=== PATIENT | male | born 1935 | race Caucasian/White ===

== ENCOUNTER 2018-08-22 15:01 | Emergency (ER) | payer MEDICARE, OTHER ==
[2018-08-22] MEDS ORDERED: Sodium Chloride 0.9% 10 ML Syringe FLUSH PRN ×2 (15:12→16:12)
[2018-08-22] MEDS: Sodium Chloride 0.9% 1,000 ML IV SCH ×2 (15:40→18:00)
[2018-08-22] MEDS ORDERED: cefTRIAXone 1 GM Vial IVPUSH ONE (15:42)
[2018-08-22] MEDS ORDERED: methylPREDNISolone Sodium Succinate 125 MG/2 ML SDV IVPUSH ONE (15:42)
--- NOTE | 2018-08-22 15:42 | EDM.PDOC ---
ED HPI GENERAL MEDICAL PROBLEM - General Chief Complaint: Respiratory Problem Time Seen by Provider: 08/22/18 15:01 Source of Information: Reports: Patient, Family History Limitations: Reports: No Limitations - History of Present Illness INITIAL COMMENTS - FREE TEXT/NARRATIVE: Pt. presents to ER with complaints of cough, chest congestion, and low-grade fever. He has also noticed some chest tightness. No nausea or vomiting. Denies any substernal chest pain. Complains of productive cough, but states that he has not been looking at the mucus that he has been expectorating. Pt. has a history of rheumatoid arthritis. Denies any significant cardiac history. No history or CHF. Denies any history of COPD but states that he previously smoked, quitting about 20 years ago. Pt. states that he has been intermittently diaphoretic. Denies any nausea, vomiting, or diarrhea. No sore throat. Denies any ear pain or sinus congestion. He states that he has been lightheaded and weak at times. He denies any history of COPD, asthma, allergies, or other respiratory problems. Denies any orthopnea. He states that the dyspnea is worse when he is active or exercising. Onset Date: 08/22/18 Location: Reports: Chest, Generalized Associated Symptoms: Reports: Cough, cough w sputum, Diaphoresis, Fever/Chills - Related Data Allergies Allergy/AdvReac Type Severity Reaction Status Date / Time No Known Allergies Allergy Verified 08/22/18 15:12 Home Meds: Home Meds Aspirin [Halfprin] 81 mg PO DAILY 08/22/18 [History] Folic Acid 1 mg PO DAILY 08/22/18 [History] Lisinopril/Hydrochlorothiazide [Zestoretic 10-12.5 mg Tablet] 1 each PO DAILY [History] Simvastatin [Zocor] 20 mg PO DAILY 08/22/18 [History] Tamsulosin HCl [Flomax] 0.4 mg PO DAILY 08/22/18 [History] ED ROS GENERAL - Review of Systems Review Of Systems: See Below Constitutional: Reports: Fever, Chills, Diaphoresis HEENT: Reports: No Symptoms Respiratory: Reports: Shortness of Breath, Wheezing, Cough, Sputum Cardiovascular: Reports: Lightheadedness, Other Endocrine: Reports: No Symptoms GI/Abdominal: Reports: No Symptoms : Reports: No Symptoms Musculoskeletal: Reports: No Symptoms Skin: Reports: No Symptoms Neurological: Reports: No Symptoms Psychiatric: Reports: No Symptoms Hematologic/Lymphatic: Reports: No Symptoms Immunologic: Reports: No Symptoms ED EXAM, GENERAL - Physical Exam Exam: See Below Exam Limited By: No Limitations General Appearance: Alert, WD/WN, No Apparent Distress Eye Exam: Bilateral Eye: EOMI, PERRL Throat/Mouth: Normal Inspection, Normal Lips, Normal Teeth, Normal Gums, Normal Oropharynx, Normal Voice, No Airway Compromise Head: Atraumatic, Normocephalic Neck: Normal Inspection, Supple, Non-Tender, Full Range of Motion Respiratory/Chest: No Accessory Muscle Use, Chest Non-Tender, Decreased Breath Sounds, Wheezing. No: Stridor, Pleural Rub, Retractions Cardiovascular: Normal Peripheral Pulses, No Edema, Irregularly Irregular GI/Abdominal: Normal Bowel Sounds, Soft, Non-Tender, No Organomegaly, No Distention (Male) Exam: Deferred Rectal (Males) Exam: Deferred Back Exam: Normal Inspection, Full Range of Motion Extremities: Normal Inspection, Normal Range of Motion, Non-Tender, No Pedal Edema Neurological: Alert, Oriented, CN II-XII Intact, Normal Cognition EKG INTERPRETATION Rhythm: A-Fib Course - Orders/Labs/Meds Orders: Active Orders 24 hr Category Date Time Status Cardiac Monitoring [RC] CONTINUOUS Care 08/22/18 15:12 Active EKG Documentation Completion [RC] STAT Care 08/22/18 15:13 Active Chest 2V [CR] Stat Exams 08/22/18 15:12 Stop Req CBC WITH AUTO DIFF [HEME] Stat Lab 08/22/18 15:13 Ordered COMPREHENSIVE METABOLIC PN,CMP [CHEM] Stat Lab 08/22/18 15:13 Ordered CRP [C-REACTIVE PROTEIN] [CHEM] Stat Lab 08/22/18 15:13 Ordered CULTURE BLOOD [BC] Stat Lab 08/22/18 15:35 Ordered CULTURE BLOOD [BC] Stat Lab 08/22/18 15:35 Ordered D Dimer [D-DIMER QUANTITATIVE] [COAG] Stat Lab 08/22/18 15:14 Ordered INR,PT,PROTHROMBIN TIME [COAG] Stat Lab 08/22/18 15:13 Ordered LACTIC ACID [CHEM] Stat Lab 08/22/18 15:35 Ordered MAGNESIUM [CHEM] Stat Lab 08/22/18 15:13 Ordered MANUAL DIFFERENTIAL QA/NC [HEME] Stat Lab 08/22/18 15:30 Results PHOSPHORUS [CHEM] Stat Lab 08/22/18 15:13 Ordered PRO B-TYPE NATRIUR PEPT,BNPPRO [CHEM] Stat Lab 08/22/18 15:13 Ordered TROPONIN I [CHEM] Stat Lab 08/22/18 15:13 Ordered Sodium Chloride 0.9% @ 150 MLS/HR (1000ml) Med 08/22/18 15:45 Ordered Sodium Chloride 0.9% [Normal Saline] 1,000 ml IV ASDIRECTED Sodium Chloride 0.9% [Saline Flush] Med 08/22/18 15:12 Active 10 ml FLUSH ASDIRECTED PRN Blood Culture x2 Reflex Set [OM.PC] Stat Oth 08/22/18 15:35 Ordered Peripheral IV Insertion Adult [OM.PC] Routine Oth 08/22/18 15:13 Ordered Medication Orders Sodium Chloride (Normal Saline) 1,000 mls @ 150 mls/hr IV ASDIRECTED [facility] Last Admin: 08/22/18 15:40 Dose: 150 mls/hr Sodium Chloride (Saline Flush) 10 ml FLUSH ASDIRECTED PRN PRN Reason: Keep Vein Open Labs: Laboratory Tests 08/22/18 Range/Units 15:30 WBC 21.1 H* (4.0-10.0) x10^3/uL RBC 4.05 L (4.5-6.0) x10^6/uL Hgb 12.5 L (14.0-18.0) g/dL Hct 38.5 L (40.0-52.0) % MCV 95.1 H (78.0-93.0) fL MCH 30.9 (26.0-32.0) pg MCHC 32.5 (32.0-36.0) g/dL RDW Coeff of Robles 12.9 (10.0-15.0) % Plt Count 242 (130-400) x10^3/uL Add Manual Diff Yes Meds: Medications Generic Name Dose Route Start Last Admin Trade Name Freq PRN Reason Stop Dose Admin Sodium Chloride 1,000 mls @ 150 mls/hr 08/22/18 15:45 08/22/18 15:40 Normal Saline IV 150 mls/hr ASDIRECTED PAPO Administration Sodium Chloride 10 ml 08/22/18 15:12 Saline Flush FLUSH ASDIRECTED PRN Keep Vein Open Discontinued Medications Generic Name Dose Route Start Last Admin Trade Name Freq PRN Reason Stop Dose Admin Ceftriaxone Sodium 1 gm 08/22/18 15:42 Rocephin IVPUSH 08/22/18 15:43 STAT ONE Ceftriaxone Sodium 2 gm 08/22/18 15:44 Rocephin IVPUSH 08/22/18 15:45 STAT ONE Methylprednisolone Sodium Succinate 125 mg 08/22/18 15:42 Solu-Medrol IVPUSH 08/22/18 15:43 ONETIME ONE Departure - Departure Time of Disposition: 17:36 Disposition: DC/Tfer to [facility] 02 Clinical Impression: Sepsis, CAP (community acquired pneumonia) - Discharge Information Referrals: Carter Pinzon MD [Primary Care Provider] - Forms: ED Department Discharge - My Orders Last 24 Hours: My Active Orders 08/22/18 15:12 Cardiac Monitoring [RC] CONTINUOUS Chest 2V [CR] Stat Sodium Chloride 0.9% [Saline Flush] 10 ml FLUSH ASDIRECTED PRN 08/22/18 15:13 EKG Documentation Completion [RC] STAT CBC WITH AUTO DIFF [HEME] Stat COMPREHENSIVE METABOLIC PN,CMP [CHEM] Stat CRP [C-REACTIVE PROTEIN] [CHEM] Stat INR,PT,PROTHROMBIN TIME [COAG] Stat MAGNESIUM [CHEM] Stat PHOSPHORUS [CHEM] Stat PRO B-TYPE NATRIUR PEPT,BNPPRO [CHEM] Stat TROPONIN I [CHEM] Stat Peripheral IV Insertion Adult [OM.PC] Routine 08/22/18 15:14 D Dimer [D-DIMER QUANTITATIVE] [COAG] Stat 08/22/18 15:30 MANUAL DIFFERENTIAL QA/NC [HEME] Stat 08/22/18 15:35 CULTURE BLOOD [BC] Stat CULTURE BLOOD [BC] Stat LACTIC ACID [CHEM] Stat Blood Culture x2 Reflex Set [OM.PC] Stat 08/22/18 15:45 Sodium Chloride 0.9% @ 150 MLS/HR (1000ml) Sodium Chloride 0.9% [Normal Saline] 1,000 ml IV ASDIRECTED - Assessment/Plan Last 24 Hours: My Active Orders 08/22/18 15:12 Cardiac Monitoring [RC] CONTINUOUS Chest 2V [CR] Stat Sodium Chloride 0.9% [Saline Flush] 10 ml FLUSH ASDIRECTED PRN 08/22/18 15:13 EKG Documentation Completion [RC] STAT CBC WITH AUTO DIFF [HEME] Stat COMPREHENSIVE METABOLIC PN,CMP [CHEM] Stat CRP [C-REACTIVE PROTEIN] [CHEM] Stat INR,PT,PROTHROMBIN TIME [COAG] Stat MAGNESIUM [CHEM] Stat PHOSPHORUS [CHEM] Stat PRO B-TYPE NATRIUR PEPT,BNPPRO [CHEM] Stat TROPONIN I [CHEM] Stat Peripheral IV Insertion Adult [OM.PC] Routine 08/22/18 15:14 D Dimer [D-DIMER QUANTITATIVE] [COAG] Stat 08/22/18 15:30 MANUAL DIFFERENTIAL QA/NC [HEME] Stat 08/22/18 15:35 CULTURE BLOOD [BC] Stat CULTURE BLOOD [BC] Stat LACTIC ACID [CHEM] Stat Blood Culture x2 Reflex Set [OM.PC] Stat 08/22/18 15:45 Sodium Chloride 0.9% @ 150 MLS/HR (1000ml) Sodium Chloride 0.9% [Normal Saline] 1,000 ml IV ASDIRECTED Plan: Pt. will be transferred to [facility]. Dr. Fonseca is accepting. CT angiogram of chest was negative for PE. He has had rocephin 2 gm IV and azithromycin 500mg IV. Will continue IV normal saline at 150mg/hr. Will institute pressors if his blood pressure is not supported with IV fluids. Family is present and made aware of the plan to transfer.
[2018-08-22] MEDS ORDERED: cefTRIAXone 2 GM Vial IVPUSH ONE (15:44)
[2018-08-22 16:06] LABS: CHLORIDE,CL 102 mmol/L (98-107); SODIUM,NA 141 mmol/L (136-145)
[2018-08-22 16:08] LABS: ANION GAP 13.4 mmol/L (10-20)
[2018-08-22] MEDS ORDERED: Iopamidol 612 MG/ML 100 ML Bottle IVPUSH ONE (16:18)
[2018-08-22] MEDS ORDERED: Azithromycin 500 MG in Sodium Chloride 0.9% 250 ML IV ONE (16:22)
--- NOTE | 2018-08-22 17:25 | CT ---
[id number] CT/CTA Chest EXAM: CT ANGIOGRAM CHEST INDICATION: CHEST PAIN, POSITIVE D-DIMER. COMPARISON: None. DISCUSSION: 1.6 cm hypodense nodule within the left thyroid. The pulmonary arteries are normal in appearance with no emboli identified. 3 mm noncalcified pulmonary nodule within the right middle lobe (series 5 image 58). No other pulmonary nodules or masses are identified. Mild probably centrilobular emphysema. No airspace consolidation. No pneumothorax or pleural effusion. The heart is enlarged. Coronary artery disease. Scattered atherosclerotic calcifications of the aorta and its branches. No mediastinal, hilar or axillary lymphadenopathy. No acute osseous abnormalities. IMPRESSION: 1. No evidence of acute pulmonary embolism. Jurgen Woo DO 08/22/18 [id number] Thank you for allowing us to participate in the care of your patient.
== END 2018-08-22 18:40 | disposition short-term general hospital (02) ==
LOC: VM.ED 15:01
DX: A41.9 Sepsis, unspecified organism (principal); J18.9 Pneumonia, unspecified organism; Z79.82 Long term (current) use of aspirin; Z79.899 Other long term (current) drug therapy
CPT/HCPCS: 36415; 71275; 80053; 81001; 83605; 83735; 83880; 84100; 84484; 85025; 85379; 85610; 86140; 87040; 87086; 93005; 96361; 96365; 96375; 99285; J0456; J0696; J2930; J7030; J7050; Q9967; 93010; 99283-GF

== ENCOUNTER 2019-06-29 11:12 | Observation (INO) | payer MEDICARE, OTHER ==
--- NOTE | 2019-06-29 11:45 | EDM.PDOC ---
ED HPI GENERAL MEDICAL PROBLEM - General Chief Complaint: General Time Seen by Provider: 06/29/19 11:12 Source of Information: Reports: Patient History Limitations: Reports: No Limitations - History of Present Illness INITIAL COMMENTS - FREE TEXT/NARRATIVE: Pt. states that he developed onset of global weakness this AM. He states that he has been unable to ambulate. Pt. states that he went out and "did chores" this AM (feeding animals, etc.) and following this came into the house and was profoundly weak. He states that he was having problems with urinary retention yesterday and had a straight cath in the clinic. His UA at that time was negative. He notes painful urination and blood tinged urine this AM. Pt. was running a fever as noted by EMS. O2 sat in the 88% on RA range. He was started on O2 per NC at IV access was established. Pt. denies any chest pain or shortness of breath. He has not been coughing. Denies any nausea, vomiting, or diarrhea. Denies any skin rashes. Onset: Today Onset Date: 06/29/19 Location: Reports: Generalized Associated Symptoms: Reports: Fever/Chills, Malaise, Weakness. Denies: Chest Pain, Cough, cough w sputum, Diaphoresis, Headaches, Loss of Appetite, Nausea/ Vomiting, Rash, Seizure, Shortness of Breath, Syncope Penis Pain Score (Numeric/FACES): 1 - Related Data Allergies Allergy/AdvReac Type Severity Reaction Status Date / Time No Known Allergies Allergy Verified 06/29/19 11:34 Home Meds: Home Meds Folic Acid 1 mg PO DAILY 08/22/18 [History] Lisinopril/Hydrochlorothiazide [Zestoretic 10-12.5 mg Tablet] 1 each PO DAILY [History] Tamsulosin HCl [Flomax] 0.8 mg PO DAILY 08/22/18 [History] Finasteride [Proscar] 5 mg PO DAILY 06/29/19 [History] Metoprolol Tartrate [Lopressor] 12.5 mg PO Q12HR 06/29/19 [History] Rosuvastatin Calcium [Crestor] 40 mg PO DAILY 06/29/19 [History] Warfarin [Coumadin] 2.5 mg PO DAILY 06/29/19 [History] Past Medical History HEENT History: Reports: Cataract Cardiovascular History: Reports: Hypertension Musculoskeletal History: Reports: Other (See Below) Other Musculoskeletal History: DJD Hematologic History: Reports: Anemia, B12 Deficiency Social & Family History - Family History Family Medical History: Noncontributory - Caffeine Use Caffeine Use: Reports: None ED ROS GENERAL - Review of Systems Review Of Systems: See Below Constitutional: Reports: No Symptoms HEENT: Reports: No Symptoms Respiratory: Reports: No Symptoms Cardiovascular: Reports: No Symptoms Endocrine: Reports: No Symptoms GI/Abdominal: Reports: No Symptoms : Reports: Dysuria, Frequency, Hematuria, Urgency, Urinary Retention Musculoskeletal: Reports: No Symptoms Skin: Reports: No Symptoms Neurological: Reports: No Symptoms Psychiatric: Reports: No Symptoms Hematologic/Lymphatic: Reports: No Symptoms Immunologic: Reports: No Symptoms ED EXAM, GENERAL - Physical Exam Exam: See Below Exam Limited By: No Limitations General Appearance: Alert, WD/WN, No Apparent Distress Eye Exam: Bilateral Eye: EOMI, Normal Fundi, Normal Inspection, PERRL Throat/Mouth: Normal Inspection, Normal Lips, Normal Teeth, Normal Gums, Normal Oropharynx, Normal Voice, No Airway Compromise Head: Atraumatic, Normocephalic Neck: Normal Inspection, Supple, Non-Tender, Full Range of Motion Respiratory/Chest: No Respiratory Distress, Lungs Clear, Normal Breath Sounds, No Accessory Muscle Use, Chest Non-Tender Cardiovascular: Normal Peripheral Pulses, Regular Rate, Rhythm, No Edema, No Gallop, No JVD, No Murmur Peripheral Pulses: 4+: Radial (L) GI/Abdominal: Normal Bowel Sounds, Soft, Non-Tender, No Mass (Male) Exam: Deferred Rectal (Males) Exam: Deferred Back Exam: Normal Inspection, Full Range of Motion Extremities: Normal Inspection, Normal Range of Motion, Non-Tender, No Pedal Edema, Normal Capillary Refill Neurological: Alert, Oriented, CN II-XII Intact, Normal Cognition, Normal Gait, Normal Reflexes, No Motor/Sensory Deficits Psychiatric: Normal Affect, Normal Mood Skin Exam: Warm, Dry, Intact, Normal Color, No Rash Course - Vital Signs Last Recorded V/S: Last Vital Signs Temp 98.5 C H 06/29/19 14:31 Pulse 92 06/29/19 13:17 Resp 15 06/29/19 14:31 BP 108/62 06/29/19 14:31 Pulse Ox 95 06/29/19 14:31 - Orders/Labs/Meds Orders: Active Orders 24 hr Category Date Time Status EKG Documentation Completion [RC] STAT Care 06/29/19 11:21 Active CULTURE BLOOD [BC] Stat Lab 06/29/19 11:33 Received CULTURE BLOOD [BC] Stat Lab 06/29/19 11:38 Received Blood Culture x2 Reflex Set [OM.PC] Stat Oth 06/29/19 11:24 Ordered Medication Orders Finasteride (Proscar) 5 mg PO DAILY [facility] Folic Acid (Folic Acid) 1 mg PO DAILY [facility] Metoprolol Tartrate (Lopressor) 12.5 mg PO Q12HR [facility] Non-Formulary Medication (Lisinopril/Hydrochlorothiazide) 1 each PO DAILY [facility] Tamsulosin HCl (Flomax) 0.8 mg PO DAILY [facility] Warfarin Sodium (Coumadin) 2.5 mg PO DAILY [facility] Labs: Laboratory Tests 06/29/19 06/29/19 06/29/19 Range/Units 11:33 11:33 11:33 WBC 18.4 H (4.0-10.0) x10^3/uL RBC 3.69 L (4.5-6.0) x10^6/uL Hgb 11.2 L (14.0-18.0) g/dL Hct 35.1 L (40.0-52.0) % MCV 95.1 H (78.0-93.0) fL MCH 30.4 (26.0-32.0) pg MCHC 31.9 L (32.0-36.0) g/dL RDW Coeff of Robles 12.7 (10.0-15.0) % Plt Count 293 (130-400) x10^3/uL Neut % (Auto) 90.1 H (50.0-80.0) % Lymph % (Auto) 1.6 L (25.0-50.0) % Burke % (Auto) 8.1 (2.0-11.0) % Eos % (Auto) 0.1 (0.0-4.0) % Baso % (Auto) 0.1 L (0.2-1.2) % PT 29.4 H D (10.0-12.8) SEC INR 2.6 (2.0-3.5) Sodium 144 (136-145) mmol/L Potassium 3.7 (3.5-5.1) mmol/L Chloride 106 (98-107) mmol/L Carbon Dioxide 31 (21-32) mmol/L Anion Gap 10.7 (10-20) mmol/L BUN 15 (7-18) mg/dL Creatinine 1.0 (0.70-1.30) mg/dL Est Cr Clr Drug Dosing TNP Estimated GFR (MDRD) > 60 Glucose 109 H (74-106) mg/dL Lactic Acid (0.4-2.0) mmol/L Calcium 8.8 (8.5-10.1) mg/dL Corrected Calcium 9.76 (8.5-10.1) mg/dL Phosphorus 1.4 L (2.6-4.7) mg/dL Magnesium 1.7 L (1.8-2.4) mg/dL Total Bilirubin 0.6 (0.2-1.0) mg/dL AST 17 (15-37) U/L ALT 20 (16-63) U/L Alkaline Phosphatase 84 (46-116) U/L Troponin I < 0.017 (<=0.056) ng/mL C-Reactive Protein 1.2 H (<=0.9) mg/dL Total Protein 6.2 L (6.4-8.2) g/dL Albumin 2.8 L (3.4-5.0) g/dL Globulin 3.4 Albumin/Globulin Ratio 0.82 TSH, Ultra Sensitive 1.923 (0.358-3.74) uIU/mL Urine Color (YELLOW) Urine Appearance (CLEAR) Urine pH (5.0-8.0) Ur Specific [place] Urine Protein (NEGATIVE) mg/dL Urine Glucose (UA) (NEGATIVE) mg/dL Urine Ketones (NEGATIVE) mg/dL Urine Occult Blood (NEGATIVE) Urine Nitrite (NEGATIVE) Urine Bilirubin (NEGATIVE) Urine Urobilinogen (0.2) EU/dL Ur Leukocyte Esterase (NEGATIVE) Urine RBC (NOT SEEN) /HPF Urine WBC (NOT SEEN) /HPF Ur Squamous Epith Cells (NEGATIVE) /HPF Urine Bacteria (NEGATIVE) /HPF Urine Mucus (NEGATIVE) /LPF 06/29/19 06/29/19 Range/Units 11:33 11:55 WBC (4.0-10.0) x10^3/uL RBC (4.5-6.0) x10^6/uL Hgb (14.0-18.0) g/dL Hct (40.0-52.0) % MCV (78.0-93.0) fL MCH (26.0-32.0) pg MCHC (32.0-36.0) g/dL RDW Coeff of Robles (10.0-15.0) % Plt Count (130-400) x10^3/uL Neut % (Auto) (50.0-80.0) % Lymph % (Auto) (25.0-50.0) % Burke % (Auto) (2.0-11.0) % Eos % (Auto) (0.0-4.0) % Baso % (Auto) (0.2-1.2) % PT (10.0-12.8) SEC INR (2.0-3.5) Sodium (136-145) mmol/L Potassium (3.5-5.1) mmol/L Chloride (98-107) mmol/L Carbon Dioxide (21-32) mmol/L Anion Gap (10-20) mmol/L BUN (7-18) mg/dL Creatinine (0.70-1.30) mg/dL Est Cr Clr Drug Dosing Estimated GFR (MDRD) Glucose (74-106) mg/dL Lactic Acid 1.7 (0.4-2.0) mmol/L Calcium (8.5-10.1) mg/dL Corrected Calcium (8.5-10.1) mg/dL Phosphorus (2.6-4.7) mg/dL Magnesium (1.8-2.4) mg/dL Total Bilirubin (0.2-1.0) mg/dL AST (15-37) U/L ALT (16-63) U/L Alkaline Phosphatase (46-116) U/L Troponin I (<=0.056) ng/mL C-Reactive Protein (<=0.9) mg/dL Total Protein (6.4-8.2) g/dL Albumin (3.4-5.0) g/dL Globulin Albumin/Globulin Ratio TSH, Ultra Sensitive (0.358-3.74) uIU/mL Urine Color Yellow (YELLOW) Urine Appearance Slightly cloudy H (CLEAR) Urine pH 6.0 (5.0-8.0) Ur Specific [place] 1.020 Urine Protein Negative (NEGATIVE) mg/dL Urine Glucose (UA) Negative (NEGATIVE) mg/dL Urine Ketones Negative (NEGATIVE) mg/dL Urine Occult Blood Small H (NEGATIVE) Urine Nitrite Negative (NEGATIVE) Urine Bilirubin Negative (NEGATIVE) Urine Urobilinogen 0.2 (0.2) EU/dL Ur Leukocyte Esterase Negative (NEGATIVE) Urine RBC 5-10 H (NOT SEEN) /HPF Urine WBC 0-5 (NOT SEEN) /HPF Ur Squamous Epith Cells Rare (NEGATIVE) /HPF Urine Bacteria Not seen (NEGATIVE) /HPF Urine Mucus Few H (NEGATIVE) /LPF Meds: Medications Generic Name Dose Route Start Last Admin Trade Name Freq PRN Reason Stop Dose Admin Finasteride 5 mg 06/30/19 08:00 Proscar PO DAILY [facility] Folic Acid 1 mg 06/30/19 08:00 Folic Acid PO DAILY [facility] Metoprolol Tartrate 12.5 mg 06/29/19 20:00 Lopressor PO Q12HR [facility] Non-Formulary Medication 1 each 06/30/19 08:00 Lisinopril/Hydrochlorothiazide PO DAILY [facility] Tamsulosin HCl 0.8 mg 06/30/19 08:00 Flomax PO DAILY [facility] Warfarin Sodium 2.5 mg 06/30/19 08:00 Coumadin PO DAILY [facility] Discontinued Medications Generic Name Dose Route Start Last Admin Trade Name Freq PRN Reason Stop Dose Admin Ceftriaxone Sodium 2 gm 06/29/19 12:20 06/29/19 13:03 Rocephin IVPUSH 06/29/19 12:21 2 gm STAT ONE Administration Iopamidol 100 ml 06/29/19 12:34 [id number] (61%) IVPUSH 06/29/19 12:35 ONETIME ONE - Radiology Interpretation Free Text/Narrative:: CT abd and pelvis showed bladder wall thickening, enlargement of prostate. No obvious abscess or ruptured viscus. Departure - Departure Time of Disposition: 14:30 Disposition: Refer to Observation Clinical Impression: Prostatitis, UTI (urinary tract infection) - Discharge Information Sepsis Event Note - Evaluation Sepsis Screening Result: No Definite Risk - Focused Exam Vital Signs: Vital Signs Temp Pulse Resp BP Pulse Ox Pulse Ox 06/29/19 13:17 37.6 C 92 16 104/65 95 06/29/19 11:12 38.1 C 104 H 20 111/60 94 L 95 Date Exam was Performed: 06/29/19 Time Exam was Performed: 14:53 - Problem List Review Problem List Initiated/Reviewed/Updated: Yes - My Orders Last 24 Hours: My Active Orders 06/29/19 11:21 EKG Documentation Completion [RC] STAT 06/29/19 11:24 Blood Culture x2 Reflex Set [OM.PC] Stat 06/29/19 11:33 CULTURE BLOOD [BC] Stat 06/29/19 11:38 CULTURE BLOOD [BC] Stat - Assessment/Plan Admission H&P: Please use this note as an admission H&P Last 24 Hours: My Active Orders 06/29/19 11:21 EKG Documentation Completion [RC] STAT 06/29/19 11:24 Blood Culture x2 Reflex Set [OM.PC] Stat 06/29/19 11:33 CULTURE BLOOD [BC] Stat 06/29/19 11:38 CULTURE BLOOD [BC] Stat Plan: Pt. will be admitted observation. Continue IV LR at 125ml/hr after first liter of fluids. Rocephin 2gm IV daily. Continue with flomax and finasteride. Tylenol as needed for fever/discomfort.
--- NOTE | 2019-06-29 11:51 | CR ---
[id number] RAD/RAD Chest PA or AP 1V EXAM: RAD Chest PA or AP 1V INDICATION: FEVER, WEAKNESS. COMPARISON: CT from August 2018. DISCUSSION: Cardiomegaly and central vascular congestion. Bilateral symmetric lung hyperinflation. Correlation with CT from August 22, 2018 demonstrates changes of COPD. No evidence of pneumonia. No effusion or pneumothorax. IMPRESSION: Negative for pneumonia or other acute findings. Overall, no significant change from prior examination in August 2018. Keyur Varner MD 06/29/19 1149 Thank you for allowing us to participate in the care of your patient.
[2019-06-29 12:14] LABS: CHLORIDE,CL 106 mmol/L (98-107); SODIUM,NA 144 mmol/L (136-145)
[2019-06-29 12:19] LABS: ANION GAP 10.7 mmol/L (10-20)
[2019-06-29] MEDS ORDERED: cefTRIAXone 2 GM Vial IVPUSH ONE (12:20)
[2019-06-29] MEDS ORDERED: Iopamidol 612 MG/ML 100 ML Bottle IVPUSH ONE (12:34)
--- NOTE | 2019-06-29 13:38 | CT ---
[id number] CT/CT Abdomen Pelvis W IV EXAM: CT Abdomen Pelvis W IV CLINICAL DATA: ELEVATED WHITE BLOOD CELL COUNT URINARY RETENTION PROSTATE INFECTION COMPARISON: NO PREVIOUS SIMILAR EXAM IS AVAILABLE. FINDINGS: There is bladder wall thickening The prostate is enlarged. The urinary bladder is moderately distended. The appendix appears normal. The pelvis shows no mass or adenopathy. There is no abscess There are diffuse atheromatous calcifications. The liver and spleen, kidneys, adrenals, aorta, and pancreas show no acute abnormalities. The gallbladder is not distended. The abdominal aorta and iliac vessels are ectatic. There is no free fluid or free air IMPRESSION: BLADDER WALL THICKENING EVIDENCE OF CHRONIC BLADDER OUTLET OBSTRUCTION MODERATE DISTENTION OF URINARY BLADDER PROSTATIC ENLARGEMENT NO ABSCESS NO HYDRONEPHROSIS Abiodun Jon MD 06/29/19 1451 Thank you for allowing us to participate in the care of your patient.
[2019-06-29] MEDS ORDERED: Acetaminophen 500 MG Tab PO PRN (15:51)
[2019-06-29] MEDS: Sodium Chloride 0.9% 1,000 ML IV SCH (18:47)
[2019-06-29] MEDS: Metoprolol Tartrate 25 MG Tab PO SCH (20:12)
[2019-06-30] MEDS: Sodium Chloride 0.9% 1,000 ML IV SCH ×2 (02:34→10:52)
[2019-06-30] MEDS ORDERED: Tamsulosin 0.4 MG Cap.ER PO SCH (08:00)
[2019-06-30] MEDS ORDERED: Folic Acid 1 MG Tab PO SCH (08:00)
[2019-06-30] MEDS ORDERED: Lisinopril 10 MG Tab PO SCH (08:00)
[2019-06-30] MEDS ORDERED: Finasteride 5 MG Tab PO SCH (08:00)
[2019-06-30] MEDS ORDERED: HYDROCHLOROTHIAZIDE PO SCH (08:00)
[2019-06-30] MEDS ORDERED: LISINOPRIL PO SCH (08:00)
[2019-06-30] MEDS ORDERED: atorvaSTATin 40 MG Tab PO SCH (08:00)
[2019-06-30] MEDS ORDERED: Hydrochlorothiazide 12.5 MG Cap PO SCH (08:00)
[2019-06-30] MEDS ORDERED: Warfarin 2.5 MG Tab PO SCH (08:00)
[2019-06-30 08:12] LABS: CHLORIDE,CL 108 mmol/L (98-107); SODIUM,NA 144 mmol/L (136-145)
[2019-06-30 08:13] LABS: ANION GAP 10.8 mmol/L (10-20)
[2019-06-30] MEDS: Metoprolol Tartrate 25 MG Tab PO SCH (09:29)
[2019-06-30] MEDS ORDERED: cefTRIAXone 1 GM Vial IVPUSH SCH (12:00)
--- NOTE | 2019-06-30 14:38 | PCM.PN ---
- General Info Date of Service: 06/30/19 Admission Dx/Problem (Free Text): Pt. did well overnight. He has been afebrile. His lactic acid has decreased. His white count this AM was still 18.4. Pt. is still experiencing urinary retention. He has been unable to void and has required periodic straight catheterizations. Nursing staff states that his urine his still quite concentrated. He has been receiving IV NS at 125ml/hr. He received IV rocephin 2gm IV on admit and will get 1 gm IV daily. He is on flomax and finasteride. He has only been up walking to the bathroom. He has not gone for a walk in the hallway so have been unable to assess his strength overall. He is requesting to be discharged with a leg bag to wear while the prostatitis improves. He has been eating and drinking adequately. Denies any nausea, vomiting, or diarrhea. Functional Status: Reports: Pain Controlled - Review of Systems General: Reports: No Symptoms HEENT: Reports: No Symptoms Pulmonary: Reports: No Symptoms Cardiovascular: Reports: No Symptoms Gastrointestinal: Reports: No Symptoms Genitourinary: Reports: Dysuria, Burning, Retention Musculoskeletal: Reports: No Symptoms Skin: Reports: No Symptoms Neurological: Reports: No Symptoms Psychiatric: Reports: No Symptoms - Patient Data Vitals - Most Recent: Last Vital Signs Temp 36.9 C 06/30/19 10:57 Pulse 70 06/30/19 09:29 Resp 16 06/30/19 10:57 BP 112/68 06/30/19 10:57 Pulse Ox 95 06/30/19 10:57 Weight - Most Recent: 74.389 kg I&O - Last 24 Hours: Intake & Output 06/29/19 06/30/19 06/30/19 22:59 06:59 14:59 Intake Total 220 360 Output Total 10 150 Balance 210 -150 360 Lab Results Last 24 Hours: Laboratory Results - last 24 hr 06/30/19 06/30/19 06/30/19 Range/Units 02:02 07:15 07:15 WBC 18.4 H (4.0-10.0) x10^3/uL RBC 3.18 L (4.5-6.0) x10^6/uL Hgb 9.7 L D (14.0-18.0) g/dL Hct 31.1 L (40.0-52.0) % MCV 97.8 H (78.0-93.0) fL MCH 30.5 (26.0-32.0) pg MCHC 31.2 L (32.0-36.0) g/dL RDW Coeff of [place] 13.2 (10.0-15.0) % Plt Count 274 (130-400) x10^3/uL Add Manual Diff Yes Neutrophils % (Manual) 82 H (50-80) % Band Neutrophils % 2 (0-6) % Lymphocytes % (Manual) 6 L (25-50) % Monocytes % (Manual) 10 (2-11) % Hypochromasia 1+ slight H Microcytosis 1+ slight H Sodium 144 (136-145) mmol/L Potassium 3.8 (3.5-5.1) mmol/L Chloride 108 H (98-107) mmol/L Carbon Dioxide 29 (21-32) mmol/L Anion Gap 10.8 (10-20) mmol/L BUN 16 (7-18) mg/dL Creatinine 0.9 (0.70-1.30) mg/dL Est Cr Clr Drug Dosing 63.09 mL/min Estimated GFR (MDRD) > 60 Glucose 85 (74-106) mg/dL Lactic Acid 0.8 (0.4-2.0) mmol/L Calcium 8.1 L (8.5-10.1) mg/dL Franky Results Last 24 Hours: Microbiology 06/29/19 11:38 Aerobic Blood Culture - Preliminary Blood - Venous - Lab Draw NO GROWTH AFTER 1 DAY Anaerobic Blood Culture - Preliminary NO GROWTH AFTER 1 DAY 06/29/19 11:33 Aerobic Blood Culture - Preliminary Blood - Venous NO GROWTH AFTER 1 DAY Anaerobic Blood Culture - Preliminary NO GROWTH AFTER 1 DAY 06/29/19 12:00 Influenza Type A Antigen Screen - Final Nasal, Unspecified NEGATIVE INFLUENZA A VIRUS AG REFERENCE RANGE: NEGATIVE Influenza Type B Antigen Screen - Final NEGATIVE INFLUENZA B VIRUS AG REFERENCE RANGE: NEGATIVE Med Orders - Current: Current Medications Acetaminophen (Tylenol Extra Strength) 1,000 mg PO Q6H PRN PRN Reason: Fever Greater Than 101 Atorvastatin Calcium (Lipitor) 80 mg PO DAILY [facility] Last Admin: 06/30/19 09:28 Dose: 80 mg Ceftriaxone Sodium (Rocephin) 1 gm IVPUSH DAILY [facility] Last Admin: 06/30/19 13:51 Dose: 1 gm Finasteride (Proscar) 5 mg PO DAILY [facility] Last Admin: 06/30/19 09:29 Dose: 5 mg Folic Acid (Folic Acid) 1 mg PO DAILY [facility] Last Admin: 06/30/19 09:29 Dose: 1 mg Hydrochlorothiazide (Hydrochlorothiazide) 12.5 mg PO DAILY [facility] Last Admin: 06/30/19 09:30 Dose: 12.5 mg Sodium Chloride (Normal Saline) 1,000 mls @ 150 mls/hr IV ASDIRECTED [facility] Last Infusion: 06/30/19 12:12 Dose: 150 mls/hr Lisinopril (Prinivil) 10 mg PO DAILY [facility] Last Admin: 06/30/19 09:30 Dose: 10 mg Metoprolol Tartrate (Lopressor) 12.5 mg PO Q12HR [facility] Last Admin: 06/30/19 09:29 Dose: 12.5 mg Tamsulosin HCl (Flomax) 0.8 mg PO DAILY [facility] Last Admin: 06/30/19 09:28 Dose: 0.8 mg Warfarin Sodium (Coumadin) 2.5 mg PO SuTuThSa@0800 [facility] Last Admin: 06/30/19 09:28 Dose: 2.5 mg Warfarin Sodium (Coumadin) 1.25 mg PO MoWeFr@0800 [facility] Discontinued Medications Ceftriaxone Sodium (Rocephin) 2 gm IVPUSH STAT ONE Stop: 06/29/19 12:21 Last Admin: 06/29/19 13:03 Dose: 2 gm Iopamidol (Isovue-300 (61%)) 100 ml IVPUSH ONETIME ONE Stop: 06/29/19 12:35 Last Admin: 06/29/19 13:06 Dose: 100 ml - Exam Quality Assessment: Supplemental Oxygen General: Alert, Oriented Neck: Supple Lungs: Clear to Auscultation, Normal Respiratory Effort Cardiovascular: Regular Rate, Irregular Rhythm GI/Abdominal Exam: Normal Bowel Sounds, Soft, Non-Tender, No Distention, No Mass , Pelvis Stable (Male) Exam: Deferred Back Exam: Normal Inspection, Full Range of Motion Extremities: Normal Inspection, Normal Range of Motion, Non-Tender, No Pedal Edema, Normal Capillary Refill Skin: Warm, Dry, Intact Wound/Incisions: Healing Well Neurological: No New Focal Deficit Psy/Mental Status: Alert, Normal Affect, Normal Mood Sepsis Event Note - Evaluation Sepsis Screening Result: Sepsis Risk - Focused Exam Vital Signs: Vital Signs Temp Temp Pulse Pulse Resp BP BP 06/30/19 10:57 36.9 C 16 112/68 06/30/19 09:30 104/55 L 06/30/19 09:29 70 104/55 L 06/30/19 05:24 36.6 C 69 16 104/55 L Pulse Ox 06/30/19 10:57 95 06/30/19 09:30 06/30/19 09:29 06/30/19 05:24 97 Date Exam was Performed: 06/30/19 Time Exam was Performed: 14:33 - Problem List Review Problem List Initiated/Reviewed/Updated: Yes - My Orders Last 24 Hours: My Active Orders 06/29/19 13:46 Patient Status [ADT] Routine 06/29/19 14:43 Intake and Output [RC] 06,18 Up With Assistance [RC] , VTE/DVT Education [RC] .PRN Vital Signs [RC] 02,06,10,14,18,22 06/29/19 15:50 Dietary Supplements [RC] 11,17 06/29/19 15:51 Acetaminophen [Tylenol Extra Strength] 1,000 mg PO Q6H PRN 06/29/19 15:52 Code Status [Resuscitation Status] Routine 06/29/19 16:00 Sodium Chloride 0.9% [Normal Saline] 1,000 ml IV ASDIRECTED 06/29/19 20:00 Metoprolol Tartrate [Lopressor] 12.5 mg PO Q12HR 06/29/19 Dinner Regular Diet [DIET] 06/30/19 01:30 CULTURE URINE [RM] Stat 06/30/19 08:00 Finasteride [Proscar] 5 mg PO DAILY Folic Acid 1 mg PO DAILY Tamsulosin [Flomax] 0.8 mg PO DAILY Warfarin [Coumadin] 2.5 mg PO SuTuThSa@0800 atorvaSTATin [Lipitor] 80 mg PO DAILY hydroCHLOROthiazide 12.5 mg PO DAILY lisinopriL [Prinivil] 10 mg PO DAILY 06/30/19 12:00 cefTRIAXone [Rocephin] 1 gm IVPUSH DAILY 07/02/19 08:00 Warfarin [Coumadin] 1.25 mg PO MoWeFr@0800 - Plan Plan:: Will evaluate patient's ability to ambulate this afternoon. I would like to keep the patient another day. Will continue IV rocephin. Blood and urine cultures obtained. IV NS at 150ml/hr. Will repeat labs in the AM. Continue with intermittent caths for now. All questions were answered.
[2019-06-30] MEDS ORDERED: Take Home: Sulfamethoxazole/Trimethoprim 800-160 MG Tab, 2 Tab Pack PO ONE (15:18)
--- NOTE | 2019-06-30 15:41 | PCM.DCSUM1 ---
Discharge Summary - Hospital Course Free Text/Narrative:: Pt. states that he is feeling much better this afternoon. He was up and out of bed and was able to ambulate around the department. He has been tolerating food and drink. No nausea, vomiting, or diarrhea. He has been afebrile since yesterday afternoon. Please refer to the patient's progress note from earlier today as well. I advised the patient that I would like to keep him admitted on IV antibiotics until tomorrow but he is insistent that he be discharged. Diagnosis: Stroke: No Modified [place] Scale: No Symptoms at All Modified [place] Scale Score: 0 - Discharge Data Discharge Date: 06/30/19 Discharge Disposition: Home, Self-Care 01 Condition: Good - Referral to Home Health Primary Care Physician: Carter Pinzon MD - Discharge Diagnosis/Problem(s) (1) Prostatitis SNOMED Code(s): 6256629 ICD Code: N41.9 - INFLAMMATORY DISEASE OF PROSTATE, UNSPECIFIED Status: Acute Current Visit: Yes Qualifiers: Prostatitis type: acute Qualified Code(s): N41.0 - Acute prostatitis - Discharge Plan Home Medications: Home Meds Folic Acid 1 mg PO DAILY 08/22/18 [History] Lisinopril/Hydrochlorothiazide [Zestoretic 10-12.5 mg Tablet] 1 each PO DAILY [History] Tamsulosin HCl [Flomax] 0.8 mg PO DAILY 08/22/18 [History] Finasteride [Proscar] 5 mg PO DAILY 06/29/19 [History] Metoprolol Tartrate [Lopressor] 12.5 mg PO Q12HR 06/29/19 [History] Rosuvastatin Calcium [Crestor] 40 mg PO DAILY 06/29/19 [History] Warfarin [Coumadin] 2.5 mg PO DAILY 06/29/19 [History] Forms: ED Department Discharge Referrals: Carter Pinzon MD [Primary Care Provider] - - Discharge Summary/Plan Comment DC Time >30 min.: Yes Discharge Summary/Plan Comment: Discussed findings with Dr. Qureshi, urologist at [facility]. He feels that the patient can be discharged. Will start the patient on Bactrim DS 1 twice daily for 14 days. Rowe Catheter removed Tuesday in clinic. Advised him to have his INR checked as well, given the antibiotics he has been on. He received a dose of Rocephin today and can start the bactrim tomorrow. Encouraged intake of fluids. Return to ER if profound weakness/lightheadedness, chest pain or shortness of breath. - General Info Functional Status: Reports: Pain Controlled - Review of Systems General: Reports: No Symptoms HEENT: Reports: No Symptoms Pulmonary: Reports: No Symptoms Cardiovascular: Reports: No Symptoms Gastrointestinal: Reports: No Symptoms Genitourinary: Reports: No Symptoms Musculoskeletal: Reports: No Symptoms Skin: Reports: No Symptoms Neurological: Reports: No Symptoms Psychiatric: Reports: No Symptoms - Patient Data Vitals - Most Recent: Last Vital Signs Temp 37.1 C 06/30/19 14:00 Pulse 84 06/30/19 14:00 Resp 16 06/30/19 10:57 BP 107/67 06/30/19 14:00 Pulse Ox 96 06/30/19 14:00 Weight - Most Recent: 74.389 kg I&O - Last 24 hours: Intake & Output 06/30/19 06/30/19 06/30/19 06:59 14:59 22:59 Intake Total 360 Output Total 150 Balance -150 360 Lab Results - Last 24 hrs: Laboratory Results - last 24 hr 06/30/19 06/30/19 06/30/19 Range/Units 02:02 07:15 07:15 WBC 18.4 H (4.0-10.0) x10^3/uL RBC 3.18 L (4.5-6.0) x10^6/uL Hgb 9.7 L D (14.0-18.0) g/dL Hct 31.1 L (40.0-52.0) % MCV 97.8 H (78.0-93.0) fL MCH 30.5 (26.0-32.0) pg MCHC 31.2 L (32.0-36.0) g/dL RDW Coeff of [place] 13.2 (10.0-15.0) % Plt Count 274 (130-400) x10^3/uL Add Manual Diff Yes Neutrophils % (Manual) 82 H (50-80) % Band Neutrophils % 2 (0-6) % Lymphocytes % (Manual) 6 L (25-50) % Monocytes % (Manual) 10 (2-11) % Hypochromasia 1+ slight H Microcytosis 1+ slight H Sodium 144 (136-145) mmol/L Potassium 3.8 (3.5-5.1) mmol/L Chloride 108 H (98-107) mmol/L Carbon Dioxide 29 (21-32) mmol/L Anion Gap 10.8 (10-20) mmol/L BUN 16 (7-18) mg/dL Creatinine 0.9 (0.70-1.30) mg/dL Est Cr Clr Drug Dosing 63.09 mL/min Estimated GFR (MDRD) > 60 Glucose 85 (74-106) mg/dL Lactic Acid 0.8 (0.4-2.0) mmol/L Calcium 8.1 L (8.5-10.1) mg/dL THOMAS Results - Last 24 hrs: Microbiology 06/29/19 11:38 Aerobic Blood Culture - Preliminary Blood - Venous - Lab Draw NO GROWTH AFTER 1 DAY Anaerobic Blood Culture - Preliminary NO GROWTH AFTER 1 DAY 06/29/19 11:33 Aerobic Blood Culture - Preliminary Blood - Venous NO GROWTH AFTER 1 DAY Anaerobic Blood Culture - Preliminary NO GROWTH AFTER 1 DAY 06/29/19 12:00 Influenza Type A Antigen Screen - Final Nasal, Unspecified NEGATIVE INFLUENZA A VIRUS AG REFERENCE RANGE: NEGATIVE Influenza Type B Antigen Screen - Final NEGATIVE INFLUENZA B VIRUS AG REFERENCE RANGE: NEGATIVE Med Orders - Current: Current Medications Acetaminophen (Tylenol Extra Strength) 1,000 mg PO Q6H PRN PRN Reason: Fever Greater Than 101 Atorvastatin Calcium (Lipitor) 80 mg PO DAILY [facility] Last Admin: 06/30/19 09:28 Dose: 80 mg Ceftriaxone Sodium (Rocephin) 1 gm IVPUSH DAILY [facility] Last Admin: 06/30/19 13:51 Dose: 1 gm Finasteride (Proscar) 5 mg PO DAILY [facility] Last Admin: 06/30/19 09:29 Dose: 5 mg Folic Acid (Folic Acid) 1 mg PO DAILY [facility] Last Admin: 06/30/19 09:29 Dose: 1 mg Hydrochlorothiazide (Hydrochlorothiazide) 12.5 mg PO DAILY [facility] Last Admin: 06/30/19 09:30 Dose: 12.5 mg Sodium Chloride (Normal Saline) 1,000 mls @ 150 mls/hr IV ASDIRECTED [facility] Last Infusion: 06/30/19 12:12 Dose: 150 mls/hr Lisinopril (Prinivil) 10 mg PO DAILY [facility] Last Admin: 06/30/19 09:30 Dose: 10 mg Metoprolol Tartrate (Lopressor) 12.5 mg PO Q12HR [facility] Last Admin: 06/30/19 09:29 Dose: 12.5 mg Tamsulosin HCl (Flomax) 0.8 mg PO DAILY [facility] Last Admin: 06/30/19 09:28 Dose: 0.8 mg Warfarin Sodium (Coumadin) 2.5 mg PO SuTuThSa@0800 [facility] Last Admin: 06/30/19 09:28 Dose: 2.5 mg Warfarin Sodium (Coumadin) 1.25 mg PO MoWeFr@0800 [facility] Discontinued Medications Ceftriaxone Sodium (Rocephin) 2 gm IVPUSH STAT ONE Stop: 06/29/19 12:21 Last Admin: 06/29/19 13:03 Dose: 2 gm Iopamidol (Isovue-300 (61%)) 100 ml IVPUSH ONETIME ONE Stop: 06/29/19 12:35 Last Admin: 06/29/19 13:06 Dose: 100 ml Trimethoprim/Sulfamethoxazole (Take Home: Sulfameth/Trimet 800-160mg, 2 Pack) 1 packet PO ONETIME ONE Stop: 06/30/19 15:19 - Exam General: Reports: Alert, Oriented Neck: Reports: Supple Lungs: Reports: Clear to Auscultation, Normal Respiratory Effort Cardiovascular: Reports: Regular Rate, Irregular Rhythm GI/Abdominal Exam: Normal Bowel Sounds, Soft, Non-Tender, No Organomegaly, No Distention, No Mass (Male) Exam: Deferred Rectal (Males) Exam: Deferred Back Exam: Reports: Normal Inspection, Full Range of Motion Extremities: Normal Inspection, Normal Range of Motion, Non-Tender, No Pedal Edema, Normal Capillary Refill Skin: Reports: Warm, Dry Neurological: Reports: No New Focal Deficit Psy/Mental Status: Reports: Alert, Normal Affect, Normal Mood
[2019-07-02] MEDS ORDERED: Warfarin 2.5 MG Tab PO SCH (08:00)
== END 2019-06-30 17:20 | disposition home or self-care (01) ==
LOC: VM.ED 11:12 → VM.MS 13:46
PROVIDERS: ADMIT Physician Assistant; ATTEND Physician Assistant
DX: N41.0 Acute prostatitis (principal); N39.0 Urinary tract infection, site not specified; I10 Essential (primary) hypertension; Z79.899 Other long term (current) drug therapy
CPT/HCPCS: 36415; 51701; 51702; 71045; 74177; 80048; 80053; 81001; 83605; 83735; 84100; 84443; 84484; 85025; 85610; 86140; 87040; 87086; 87088; 87804; 87804-59; 93005; 94760; A9270-GY; J0696; J7030; Q9967

== ENCOUNTER 2019-07-04 06:35 | Emergency (ER) | payer MEDICARE, OTHER ==
[2019-07-04] MEDS ORDERED: Lidocaine 2% HCl 11 ML Jelly Filled Syringe MUCMEM ONE (07:15)
--- NOTE | 2019-07-04 07:33 | EDM.PDOC ---
ED HPI GENERAL MEDICAL PROBLEM - General Chief Complaint: Genitourinary Problem Stated Complaint: Unable to void, catheter d/c yesterday Time Seen by Provider: 07/04/19 07:00 Source of Information: Reports: Patient History Limitations: Reports: No Limitations - History of Present Illness INITIAL COMMENTS - FREE TEXT/NARRATIVE: Patient presents to ER with complaints of bladder retention. He has had intermittent issues with this for the last week. Relates has problems with retention for months but was worse as of late. He was first seen on the , had a catheter placed to drain bladder and returned home. Returned again on the and was admitted due to weakness. Discharged home on the with the catheter intact. Had the catheter removed, was able to void yesterday after , but over the night, things have worsened again. He denies fever. No pain. Some abdominal pressure. Has not been seen by urology but does admit that he takes Proscar for his prostate. Onset: Gradual Duration: Day(s): Location: Reports: Abdomen Quality: Reports: Ache Severity: Mild Associated Symptoms: Denies: Confusion, Chest Pain, Cough, Fever/Chills, Loss of Appetite, Nausea/Vomiting - Related Data Allergies Allergy/AdvReac Type Severity Reaction Status Date / Time No Known Allergies Allergy Verified 07/04/19 06:48 Home Meds: Home Meds Folic Acid 1 mg PO DAILY 08/22/18 [History] Lisinopril/Hydrochlorothiazide [Zestoretic 10-12.5 mg Tablet] 1 each PO DAILY [History] Tamsulosin HCl [Flomax] 0.8 mg PO DAILY 08/22/18 [History] Finasteride [Proscar] 5 mg PO DAILY 06/29/19 [History] Metoprolol Tartrate [Lopressor] 12.5 mg PO Q12HR 06/29/19 [History] Rosuvastatin Calcium [Crestor] 40 mg PO DAILY 06/29/19 [History] Warfarin [Coumadin] 2.5 mg PO DAILY 06/29/19 [History] Sulfamethoxazole/Trimethoprim [Bactrim Ds Tablet] 1 tab PO BID 07/04/19 [History ] Past Medical History HEENT History: Reports: Cataract Cardiovascular History: Reports: Hypertension Genitourinary History: Reports: BPH, Retention, Urinary Musculoskeletal History: Reports: Other (See Below) Other Musculoskeletal History: DJD Hematologic History: Reports: Anemia, B12 Deficiency Social & Family History - Family History Family Medical History: Noncontributory - Caffeine Use Caffeine Use: Reports: None ED ROS GENERAL - Review of Systems Review Of Systems: See Below Constitutional: Reports: Fatigue. Denies: Fever, Chills, Malaise, Weakness, Decreased Appetite HEENT: Reports: No Symptoms Respiratory: Denies: Shortness of Breath, Cough Cardiovascular: Denies: Chest Pain, Edema, Lightheadedness Endocrine: Denies: Fatigue GI/Abdominal: Reports: Abdominal Pain. Denies: Constipation, Diarrhea, Nausea, Vomiting : Reports: Urinary Retention Musculoskeletal: Reports: No Symptoms Skin: Reports: No Symptoms Neurological: Reports: No Symptoms ED EXAM, RENAL/ - Physical Exam Exam: See Below Exam Limited By: No Limitations General Appearance: Alert, WD/WN, No Apparent Distress Ears: Normal External Exam, Normal TMs Nose: Normal Inspection, Normal Mucosa, No Blood Throat/Mouth: Normal Inspection, Normal Oropharynx Head: Normocephalic Neck: Normal Inspection, Supple, Non-Tender Respiratory/Chest: No Respiratory Distress, Lungs Clear, Normal Breath Sounds Cardiovascular: Irregularly Irregular GI/Abdominal: Normal Bowel Sounds, Soft, Tender (Male) Exam: Suprapubic Fullness Extremities: Pedal Edema Neurological: Alert, Oriented Skin Exam: Warm, Dry Course - Vital Signs Last Recorded V/S: Last Vital Signs Temp 97.2 F 07/04/19 06:35 Pulse 96 07/04/19 06:35 Resp 16 07/04/19 06:35 BP 134/85 07/04/19 06:35 Pulse Ox 94 L 07/04/19 06:35 - Orders/Labs/Meds Orders: Active Orders 24 hr Category Date Time Status Bladder Scan [RC] ASDIRECTED Care 07/04/19 07:05 Active Insert Urinary Catheter [OM.PC] Q24H Care 07/04/19 07:15 Ordered Urinary Catheter Assessment [RC] ASDIRECTED Care 07/04/19 07:14 Ordered CULTURE URINE [RM] Stat Lab 07/04/19 07:25 Received UA W/MICROSCOPIC [URIN] Routine Lab 07/04/19 07:26 Ordered Labs: Laboratory Tests 07/04/19 Range/Units 07:35 Urine Color Yellow (YELLOW) Urine Appearance Slightly cloudy H (CLEAR) Urine pH 7.0 (5.0-8.0) Ur Specific [place] 1.020 Urine Protein Negative (NEGATIVE) mg/dL Urine Glucose (UA) Negative (NEGATIVE) mg/dL Urine Ketones Negative (NEGATIVE) mg/dL Urine Occult Blood Moderate H (NEGATIVE) Urine Nitrite Negative (NEGATIVE) Urine Bilirubin Negative (NEGATIVE) Urine Urobilinogen 0.2 (0.2) EU/dL Ur Leukocyte Esterase Negative (NEGATIVE) Meds: Medications Discontinued Medications Generic Name Dose Route Start Last Admin Trade Name Freq PRN Reason Stop Dose Admin Lidocaine HCl 11 ml 07/04/19 07:15 07/04/19 07:25 Lidocaine Hcl 2% MUCMEM 07/04/19 07:16 11 ml ONETIME ONE Administration - Re-Assessments/Exams Free Text/Narrative Re-Assessment/Exam: 07/04/19 07:00 Nurse completed bladder scan, noted 660 ml. Departure - Departure Time of Disposition: 08:06 Disposition: Home, Self-Care 01 Condition: Good Clinical Impression: Retention of urine - Discharge Information *PRESCRIPTION DRUG MONITORING PROGRAM REVIEWED*: No *COPY OF PRESCRIPTION DRUG MONITORING REPORT IN PATIENT PATRICIA: No Instructions: Indwelling Urinary Catheter Insertion, Care After Referrals: Carter Pinzon MD [Primary Care Provider] - Forms: ED Department Discharge Additional Instructions: 1. Push fluids 2. Tylenol for discomfort 3. Continue Bactrim until gone 4. Follow up with Dr. Holder in the next 1-2 days for further direction on catheter, possible consult with urology 5. Call with any questions or concerns. Sepsis Event Note - Evaluation Sepsis Screening Result: No Definite Risk - Focused Exam Vital Signs: Vital Signs Temp Pulse Resp BP Pulse Ox 07/04/19 06:35 97.2 F 96 16 134/85 94 L Date Exam was Performed: 07/04/19 Time Exam was Performed: 08:06 - My Orders Last 24 Hours: My Active Orders 07/04/19 07:05 Bladder Scan [RC] ASDIRECTED 07/04/19 07:14 Urinary Catheter Assessment [RC] ASDIRECTED 07/04/19 07:15 Insert Urinary Catheter [OM.PC] Q24H 07/04/19 07:25 CULTURE URINE [RM] Stat 07/04/19 07:26 UA W/MICROSCOPIC [URIN] Routine - Assessment/Plan Last 24 Hours: My Active Orders 07/04/19 07:05 Bladder Scan [RC] ASDIRECTED 07/04/19 07:14 Urinary Catheter Assessment [RC] ASDIRECTED 07/04/19 07:15 Insert Urinary Catheter [OM.PC] Q24H 07/04/19 07:25 CULTURE URINE [RM] Stat 07/04/19 07:26 UA W/MICROSCOPIC [URIN] Routine
== END 2019-07-04 08:12 | disposition home or self-care (01) ==
LOC: VM.ED 06:35
DX: R33.9 Retention of urine, unspecified (principal); I10 Essential (primary) hypertension; Z79.899 Other long term (current) drug therapy; Z79.01 Long term (current) use of anticoagulants
CPT/HCPCS: 51702; 51798; 81001; 87086; 99283; A9270

== ENCOUNTER 2020-10-11 09:47 | Emergency (ER) | payer MEDICARE, OTHER ==
[2020-10-11] MEDS ORDERED: Sodium Chloride 0.9% 10 ML Syringe FLUSH PRN (10:05)
--- NOTE | 2020-10-11 10:21 | EDM.PDOC ---
ED HPI GENERAL MEDICAL PROBLEM - General Chief Complaint: Upper Extremity Injury/Pain Stated Complaint: RIGHT SHOULDER PAIN Time Seen by Provider: 10/11/20 09:58 Source of Information: Reports: Patient, Family History Limitations: Reports: No Limitations - History of Present Illness INITIAL COMMENTS - FREE TEXT/NARRATIVE: Patient has a history of atrial fibrillation and is maintained on coumadin. Apparently he missed a few doses recently and developed left leg pain that was diagnosed as a DVT last week. He continued his coumadin, was started on lovenox 1mg/kg every 12 hours and has been doing this religiously. He states that he woke up yesterday with right shoulder pain, dull ache that has progressed throughout the day and continues into today. He denies any recent physical activity or injury to the shoulder. States it is painful and he needs to assist it with the other arm to lift it. No known previous problem with this shoulder. He is right handed. Denies any shortness of breath. No other complaints Onset Date: 10/10/20 Duration: Getting Worse Location: Reports: Upper Extremity, Right Quality: Reports: Ache, Dull Worsens with: Reports: Movement Associated Symptoms: Reports: No Other Symptoms Right Shoulder Pain Score (Numeric/FACES): 3 - Related Data Allergies Allergy/AdvReac Type Severity Reaction Status Date / Time No Known Allergies Allergy Verified 10/11/20 10:00 Home Meds: Home Meds Folic Acid 1 mg PO DAILY 08/22/18 [History] Lisinopril/Hydrochlorothiazide [Zestoretic 10-12.5 mg Tablet] 1 each PO DAILY 08/22/18 [History] Tamsulosin HCl [Flomax] 0.8 mg PO DAILY 08/22/18 [History] Finasteride [Proscar] 5 mg PO DAILY 06/29/19 [History] Metoprolol Tartrate [Lopressor] 12.5 mg PO Q12HR 06/29/19 [History] Rosuvastatin Calcium [Crestor] 40 mg PO DAILY 06/29/19 [History] Warfarin [Coumadin] 2.5 mg PO DAILY 06/29/19 [History] Sulfamethoxazole/Trimethoprim [Bactrim Ds Tablet] 1 tab PO BID 07/04/19 [History] Past Medical History HEENT History: Reports: Cataract Cardiovascular History: Reports: Hypertension Genitourinary History: Reports: BPH, Retention, Urinary Musculoskeletal History: Reports: Other (See Below) Other Musculoskeletal History: DJD Hematologic History: Reports: Anemia, B12 Deficiency Social & Family History - Family History Family Medical History: No Pertinent Family History - Caffeine Use Caffeine Use: Reports: None Review of Systems - Review of Systems Review Of Systems: See Below Constitutional: Reports: No Symptoms. Denies: Chills, Diaphoresis, Fever Eyes: Reports: No Symptoms. Denies: Inflammation, Vision Change Ears: Reports: No Symptoms Nose: Reports: No Symptoms Mouth/Throat: Reports: No Symptoms. Denies: Lip Swelling, Throat Swelling, Painful Swallowing Respiratory: Reports: No Symptoms. Denies: Shortness of Breath, Wheezing, Pleuritic Chest Pain, Cough Cardiovascular: Reports: No Symptoms. Denies: Chest Pain, Lightheadedness GI/Abdominal: Reports: No Symptoms. Denies: Abdominal Pain, Bloody Stool, Hematemesis Genitourinary: Reports: No Symptoms. Denies: Dysuria Musculoskeletal: Reports: Shoulder Pain (right shoulder with difficulty lifting without assistance, pain in the anterior portion. no hand numnbess) Skin: Reports: No Symptoms Neurological: Reports: No Symptoms. Denies: Confusion, Seizure, Syncope, Trouble Speaking, Difficulty Walking ED EXAM, GENERAL - Physical Exam Exam: See Below Exam Limited By: No Limitations General Appearance: Alert, No Apparent Distress Eye Exam: Bilateral Eye: EOMI, Normal Inspection, PERRL Ears: Normal External Exam Nose: Normal Inspection, Normal Mucosa, No Blood Throat/Mouth: Normal Inspection, Normal Lips, Normal Teeth, Normal Oropharynx, Normal Voice Head: Atraumatic, Normocephalic Neck: Normal Inspection, Supple, Full Range of Motion Respiratory/Chest: No Respiratory Distress, Lungs Clear, Normal Breath Sounds, No Accessory Muscle Use Cardiovascular: Irregularly Irregular (rate in mid 70's, atrial fibrillation) GI/Abdominal: Normal Bowel Sounds, Soft Back Exam: Normal Inspection, Full Range of Motion. No: CVA Tenderness (L), CVA Tenderness (R), Paraspinal Tenderness, Vertebral Tenderness Extremities: Normal Inspection, Limited Range of Motion (rigth shoulder, unable to abduct, forward flexion or get behind back due to pain and weakness.), Other (pain to palpation of the anterior shoulder at insertion of the RC tendons. 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 Normal sensation). No: Redness Neurological: Alert, Oriented, CN II-XII Intact, Normal Cognition, Other (normal sensation of the right hand, normal strength with oposition of thumb to index and fifth finger. normal strength of flexion and extension of the wrist on the right. weakness on right due to shoulder, distal sensation and strength intact. No focal neuro deficits) Psychiatric: Normal Affect #1 Interpretation EKG Date: 10/11/20 Time: 10:23 Rhythm: A-Fib QT: Normal Comparison: No Change EKG Interpretation Comments: q waves, old, V1-2, repolarization abnormality. NO STEMI Course - Vital Signs Last Recorded V/S: Last Vital Signs Temp 36.2 C 10/11/20 10:38 Pulse 92 10/11/20 10:38 Resp 16 10/11/20 10:38 BP 145/85 H 10/11/20 10:38 Pulse Ox 94 L 10/11/20 10:38 - Orders/Labs/Meds Orders: Active Orders 24 hr Category Date Time Status EKG 12 Lead [EKG Documentation Completion] [RC] STAT Care 10/11/20 10:07 Active Immobilizer [RC] ASDIRECTED Care 10/11/20 11:17 Active Sodium Chloride 0.9% [Saline Flush] Med 10/11/20 10:05 Active 10 ml FLUSH ASDIRECTED PRN Peripheral IV Insertion Adult [OM.PC] Routine Oth 10/11/20 10:05 Ordered Medication Orders Sodium Chloride (Sodium Chloride 0.9% 10 Ml Syringe) 10 ml FLUSH ASDIRECTED PRN PRN Reason: Keep Vein Open Labs: Laboratory Tests 10/11/20 10/11/20 10/11/20 Range/Units 10:05 10:05 10:05 WBC 11.1 H (4.0-10.0) x10^3/uL RBC 4.03 L (4.5-6.0) x10^6/uL Hgb 12.3 L D (14.0-18.0) g/dL Hct 38.0 L (40.0-52.0) % MCV 94.3 H D (78.0-93.0) fL MCH 30.5 (26.0-32.0) pg MCHC 32.4 (32.0-36.0) g/dL RDW Coeff of Robles 12.5 (10.0-15.0) % Plt Count 378 D (130-400) x10^3/uL Neut % (Auto) 90.4 H (50.0-80.0) % Lymph % (Auto) 5.0 L (25.0-50.0) % Kerr % (Auto) 4.2 (2.0-11.0) % Eos % (Auto) 0.2 (0.0-4.0) % Baso % (Auto) 0.2 (0.2-1.2) % PT 25.4 H (9.9-12.5) SEC INR 2.3 (2.0-3.5) Sodium 140 (136-145) mmol/L Potassium 3.6 (3.5-5.1) mmol/L Chloride 102 (98-107) mmol/L Carbon Dioxide 31 (21-32) mmol/L Anion Gap 10.6 (5-15) mmol/L BUN 14 (7-18) mg/dL Creatinine 1.0 (0.70-1.30) mg/dL Est Cr Clr Drug Dosing TNP Estimated GFR (MDRD) > 60 Glucose 174 H (70-99) mg/dL Calcium 8.7 (8.5-10.1) mg/dL Corrected Calcium 9.7 (8.5-10.1) mg/dL Total Bilirubin 0.4 (0.2-1.0) mg/dL AST 29 (15-37) U/L ALT 22 (16-63) U/L Alkaline Phosphatase 82 (46-116) U/L Troponin I High Sens 9 (<=76) ng/L Total Protein 7.1 (6.4-8.2) g/dL Albumin 2.8 L (3.4-5.0) g/dL Globulin 4.3 Albumin/Globulin Ratio 0.65 Meds: Medications Generic Name Dose Route Start Last Admin Trade Name Freq PRN Reason Stop Dose Admin Sodium Chloride 10 ml 10/11/20 10:05 Sodium Chloride 0.9% 10 Ml Syringe FLUSH ASDIRECTED PRN Keep Vein Open Discontinued Medications Generic Name Dose Route Start Last Admin Trade Name Freq PRN Reason Stop Dose Admin Iopamidol 100 ml 10/11/20 10:27 10/11/20 11:30 Iopamidol 612 Mg/Ml 100 Ml Bottle IVPUSH 10/11/20 10:28 75 ml ONETIME ONE Administration - Radiology Interpretation Free Text/Narrative:: CTA chest, negative for PE. no acute changes/ interpreted by radiologist. see report - Re-Assessments/Exams Free Text/Narrative Re-Assessment/Exam: 10/11/20 11:02 this appears to be more rotator cuff involved, however given the recent dvt while on coumadin, will need to rule out PE as this is his and his 's concern. VSS. INR yesterday was 2.8. Very limited ability to lift the right shoulder, tries to assist it with the left hand. Normal sensation distally. neuro exam normal no concerns for tia/stroke. 10/11/20 11:06 shoulder x-ray with high riding humerus with concern for rotator cuff injury will refer to PCP for possible MRI and follow up with orthopedics. Offered sling. codman's exercises for rom. discussed course and rotator cuff concerns 10/11/20 12:[address] given sling. follow up with PCP Departure - Departure Time of Disposition: 12:54 Disposition: Home, Self-Care 01 Condition: Good Clinical Impression: Rotator cuff arthropathy of right shoulder, Anticoagulant long-term use - Discharge Information *PRESCRIPTION DRUG MONITORING PROGRAM REVIEWED*: Not Applicable *COPY OF PRESCRIPTION DRUG MONITORING REPORT IN PATIENT PATRICIA: Not Applicable Instructions: Rotator Cuff Tendinitis, Bleeding Precautions When on Anticoagulant Therapy, Pediatric, How To Use a Sling, [id number], Shoulder Impingement Syndrome Rehab-[facility] Referrals: Richelle Basurto MD [Primary Care Provider] - Forms: ED Department Discharge Additional Instructions: make appointment with your physician for MRI and referral to orthopedics. Do the exercises at least once a day to keep should motion. Use the sling as needed Sepsis Event Note (ED) - Focused Exam Vital Signs: Vital Signs Temp Pulse Resp BP Pulse Ox 10/11/20 10:38 36.2 C 92 16 145/85 H 94 L - My Orders Last 24 Hours: My Active Orders 10/11/20 10:05 Sodium Chloride 0.9% [Saline Flush] 10 ml FLUSH ASDIRECTED PRN Peripheral IV Insertion Adult [OM.PC] Routine 10/11/20 10:07 EKG 12 Lead [EKG Documentation Completion] [RC] STAT 10/11/20 11:17 Immobilizer [RC] ASDIRECTED - Assessment/Plan Last 24 Hours: My Active Orders 10/11/20 10:05 Sodium Chloride 0.9% [Saline Flush] 10 ml FLUSH ASDIRECTED PRN Peripheral IV Insertion Adult [OM.PC] Routine 10/11/20 10:07 EKG 12 Lead [EKG Documentation Completion] [RC] STAT 10/11/20 11:17 Immobilizer [RC] ASDIRECTED
[2020-10-11 10:38] LABS: CHLORIDE,CL 102 mmol/L (98-107); SODIUM,NA 140 mmol/L (136-145)
[2020-10-11 10:39] LABS: ANION GAP 10.6 mmol/L (5-15)
--- NOTE | 2020-10-11 11:25 | CR ---
[id number] RAD/RAD Shoulder Right 2V Min Exam: RAD Shoulder Right 2V Min Indication:NON-TRAUMA SHOULDER PAIN Comparison: No prior imaging for comparison. Discussion/Impression: Acromioclavicular and glenohumeral osteoarthritis. Degenerative spurring on the humeral head and bursal surface of the acromion. Diffuse bone demineralization. No acute fracture. Keyur Varner MD 10/11/20 1123 Thank you for allowing us to participate in the care of your patient.
[2020-10-11] MEDS: Iopamidol 612 MG/ML 100 ML Bottle IVPUSH ONE (11:30)
--- NOTE | 2020-10-11 12:49 | CT ---
[id number] CT/CTA Chest EXAM: CTA Chest CLINICAL DATA: RIGHT SHOULDER PAIN, RECENT DVT, MISSED ANTICOAG. COMPARISON STUDY: October 06, 2020. 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 Chronic changes of bronchitis/bronchiolitis. No parenchymal consolidation. No pleural effusion or pneumothorax. Mediastinum: No mediastinal or hilar lymphadenopathy. Heart and great vessels: Cardiomegaly. No pericardial effusion. Thoracic aorta atherosclerosis. Thoracic aorta is normal in caliber. Central pulmonary vascular congestion. Negative for pulmonary embolus. Bones: No acute fracture or compression deformity. Spondylosis. Upper abdomen: Hiatus hernia. Otherwise unremarkable. IMPRESSION: Negative for pulmonary embolus or other acute findings in the chest. Chronic findings are described above. Keyur Varner MD 10/11/20 1502 Thank you for allowing us to participate in the care of your patient.
== END 2020-10-11 13:00 | disposition home or self-care (01) ==
LOC: VM.ED 09:47
DX: M12.811 Other specific arthropathies, not elsewhere classified, right shoulder (principal); I10 Essential (primary) hypertension; Z86.718 Personal history of other venous thrombosis and embolism; Z79.01 Long term (current) use of anticoagulants; Z79.899 Other long term (current) drug therapy
CPT/HCPCS: 71275; 73030; 80053; 84484; 85025; 85610; 93005; 99284; Q9967; 93010

== ENCOUNTER 2022-07-11 07:35 | Emergency (ER) | payer MEDICARE, OTHER ==
[2022-07-11] MEDS ORDERED: Albuterol 0.083% 2.5 MG/3 ML Neb Soln NEB ONE (07:58)
[2022-07-11 08:28] LABS: CHLORIDE,CL 103 mmol/L (98-107); SODIUM,NA 142 mmol/L (136-145)
[2022-07-11 08:29] LABS: ANION GAP 8.3 mmol/L (5-15); ESTIMATED GFR 86 mL/min (>=60)
[2022-07-11 08:53] LABS: CORONAVIRUS COVID-19 NAA NEGATIVE (NEGATIVE)
[2022-07-11 08:54] LABS: RESPIRATORY SYNCYTIAL VIR NAA NEGATIVE (NEGATIVE)
[2022-07-11] MEDS ORDERED: Iopamidol 612 MG/ML 50 ML SDV IVPUSH ONE (10:38)
[2022-07-11] MEDS ORDERED: Iopamidol 612 MG/ML 100 ML Bottle IVPUSH ONE (10:38)
[2022-07-11] MEDS ORDERED: Iopamidol 755 Mg/ML 100 ML Bottle IVPUSH ONE (13:11)
== END 2022-07-11 15:38 | disposition home or self-care (01) ==
LOC: VM.ED 07:35
DX: R07.89 Other chest pain (principal); I11.0 Hypertensive heart disease with heart failure; I50.9 Heart failure, unspecified; N40.0 Benign prostatic hyperplasia without lower urinary tract symptoms; Z79.01 Long term (current) use of anticoagulants; Z20.822 Contact with and (suspected) exposure to COVID-19
CPT/HCPCS: 0241U; 71046; 71275; 74019; 74177; 80053; 83690; 83880; 84484; 85025; 85610; 93005; 93010; 94640; 99284; 99285; Q9967; J7613-GY

== ENCOUNTER 2022-07-12 12:20 | Observation (INO) | payer MEDICARE, OTHER ==
[2022-07-12] MEDS ORDERED: Ondansetron 4 MG Tab.DIS PO PRN (12:56)
[2022-07-12] MEDS ORDERED: oxyCODONE 5 MG Tab PO PRN (12:56)
[2022-07-12] MEDS ORDERED: Acetaminophen 325 MG Tab PO PRN (12:56)
[2022-07-12] MEDS ORDERED: Azithromycin 250 MG Tab PO ONE (13:03)
[2022-07-12] MEDS ORDERED: Aluminum Hydroxide/Magnesium Hydroxide/Simethicone Susp 30 ML Cup PO PRN (13:11)
[2022-07-12 13:43] LABS: ANION GAP 9.3 mmol/L (5-15); CHLORIDE,CL 98 mmol/L (98-107); ESTIMATED GFR 89 mL/min (>=60); SODIUM,NA 136 mmol/L (136-145)
[2022-07-12] MEDS: methylPREDNISolone Sodium Succinate 40 MG/1 ML SDV IVPUSH SCH (14:30)
[2022-07-12] MEDS: Albuterol/Ipratropium 3.0-0.5 MG/3 ML Neb Soln NEB SCH ×2 (14:33→19:43)
[2022-07-12] MEDS ORDERED: Potassium Chloride 10 MEQ Tab.ER PO ONE ×2 (15:49→19:50)
[2022-07-12] MEDS: Omeprazole 20 MG Cap.CR PO SCH (19:40)
[2022-07-12] MEDS: Warfarin 2.5 MG Tab PO SCH ×2 (19:42→21:27)
[2022-07-12] MEDS: Metoprolol Tartrate 25 MG Tab PO SCH (20:07)
[2022-07-12] MEDS ORDERED: Donepezil 10 MG Tab PO SCH (21:00)
[2022-07-13] MEDS: Albuterol/Ipratropium 3.0-0.5 MG/3 ML Neb Soln NEB SCH ×3 (00:15→06:59)
[2022-07-13] MEDS: Omeprazole 20 MG Cap.CR PO SCH (06:20)
[2022-07-13 07:05] LABS: ANION GAP 12.8 mmol/L (5-15)
[2022-07-13] MEDS: methylPREDNISolone Sodium Succinate 40 MG/1 ML SDV IVPUSH SCH (08:30)
[2022-07-13] MEDS: Metoprolol Tartrate 25 MG Tab PO SCH (08:34)
[2022-07-13] MEDS ORDERED: Lisinopril 5 MG Tab PO SCH (09:00)
[2022-07-13] MEDS ORDERED: Ferrous Sulfate 325 MG Tab PO SCH (09:00)
[2022-07-13] MEDS ORDERED: Tamsulosin 0.4 MG Cap.ER PO SCH (09:00)
[2022-07-13] MEDS ORDERED: Azithromycin 250 MG Tab PO SCH (09:00)
[2022-07-13] MEDS ORDERED: Rosuvastatin 20 MG Tab PO SCH (09:00)
[2022-07-13] MEDS ORDERED: Hydrochlorothiazide 25 MG Tab PO SCH (09:00)
[2022-07-13] MEDS ORDERED: Finasteride 5 MG Tab PO SCH (09:00)
== END 2022-07-13 10:05 | disposition home or self-care (01) ==
LOC: VM.MS 12:20
PROVIDERS: ADMIT Family Medicine; ATTEND Family Medicine
DX: K27.9 Peptic ulcer, site unspecified, unspecified as acute or chronic, without hemorrhage or perforation (principal); J44.9 Chronic obstructive pulmonary disease, unspecified; R10.13 Epigastric pain; E87.6 Hypokalemia; Z79.899 Other long term (current) drug therapy
CPT/HCPCS: 36415; 71046; 80048; 80053; 85027; 85610; 94640; 94760; 96374; 96376; A9270-GY; G0378; J2920; J7620-GY

== ENCOUNTER 2022-07-19 08:33 | Emergency (ER) | payer MEDICARE, OTHER ==
[2022-07-19] MEDS ORDERED: GI Cocktail Oral Solution 30 ML PO ONE (09:14)
== END 2022-07-19 10:10 | disposition home or self-care (01) ==
LOC: VM.ED 08:33
DX: K21.9 Gastro-esophageal reflux disease without esophagitis (principal); J44.9 Chronic obstructive pulmonary disease, unspecified; E78.00 Pure hypercholesterolemia, unspecified; I10 Essential (primary) hypertension; N40.0 Benign prostatic hyperplasia without lower urinary tract symptoms; Z79.899 Other long term (current) drug therapy; Z79.01 Long term (current) use of anticoagulants
CPT/HCPCS: 99284; A9270-GY

== ENCOUNTER 2022-08-26 09:45 | Inpatient (IN) | payer MEDICARE, OTHER ==
[2022-08-26] MEDS ORDERED: Sodium Chloride 0.9% 10 ML Syringe FLUSH PRN (10:38)
[2022-08-26] MEDS ORDERED: Acetaminophen 325 MG Tab PO PRN (10:38)
[2022-08-26] MEDS ORDERED: Ondansetron 4 MG/2 ML SDV IV PRN (10:38)
[2022-08-26] MEDS: HYDROmorphone 0.5 MG/0.5 ML Syringe IVPUSH PRN (10:59)
[2022-08-26] MEDS ORDERED: Iopamidol 612 MG/ML 100 ML Bottle IVPUSH ONE (11:02)
[2022-08-26 11:25] LABS: BASOPHILS PERCENT AUTO 0.1 % (0.2-1.2); EOSINOPHILS ABSOLUTE AUTO 0.1 x10^3/uL (0.0-0.5); EOSINOPHILS PERCENT AUTO 0.7 % (0.0-4.0); HEMATOCRIT 34.5 % (40.0-52.0); HEMOGLOBIN 11.1 g/dL (14.0-18.0); IMMATURE GRAN ABSOLUTE AUTO 0.05 x10^3/uL (0.00-0.07); LYMPHOCYTES ABSOLUTE AUTO 0.9 x10^3/uL (1.0-4.8); LYMPHOCYTES PERCENT AUTO 8.1 % (25.0-50.0); MEAN CORPUSCULAR HEMOGLOBIN 30.2 pg (26.0-32.0); MEAN CORPUSCULAR HGB CONC 32.2 g/dL (32.0-36.0); MEAN CORPUSCULAR VOLUME 93.8 fL (78.0-93.0); MONOCYTES ABSOLUTE AUTO 1.1 x10^3/uL (0.0-0.8); MONOCYTES PERCENT AUTO 10.6 % (2.0-11.0); NEUTROPHILS ABSOLUTE AUTO 8.4 x10^3/uL (1.8-7.7); PLATELET COUNT,PLT 246 x10^3/uL (130-400); RED BLOOD CELL COUNT 3.68 x10^6/uL (4.5-6.0); WHITE BLOOD CELL COUNT,WBC 10.5 x10^3/uL (4.0-10.0)
[2022-08-26 11:38] LABS: INR 1.7 (2.0-3.5); PROTHROMBIN TIME 18.4 SEC (9.5-12.2)
[2022-08-26 11:44] LABS: A/G RATIO 0.65; ALANINE AMINOTRANSFERASE,ALT 17 U/L (16-63); ALBUMIN 2.6 g/dL (3.4-5.0); ALKALINE PHOSPHATASE 123 U/L (46-116); ASPARTATE AMNIOTRANSFERASE,AST 16 U/L (15-37); BLOOD UREA NITROGEN,BUN 13 mg/dL (7-18); CALCIUM 8.8 mg/dL (8.5-10.1); CARBON DIOXIDE,CO2 36 mmol/L (21-32); CHLORIDE,CL 102 mmol/L (98-107); CREATININE 0.8 mg/dL (0.70-1.30); ESTIMATED GFR 85 mL/min (>=60); GLUCOSE RANDOM 100 mg/dL (70-99); PROTEIN TOTAL,TP 6.6 g/dL (6.4-8.2); SODIUM,NA 143 mmol/L (136-145)
[2022-08-26] MEDS: Sodium Chloride 0.9% 1,000 ML IV SCH ×2 (11:56→21:04)
[2022-08-26] MEDS ORDERED: Sodium Phosphate,Monobasic/Sodium Phosphate,Dibasic Enema 133 ML Bottle RECTAL ONE (12:00)
[2022-08-26] MEDS: Simethicone 80 MG Tab.Chew PO SCH ×2 (12:54→21:04)
[2022-08-26] MEDS: Potassium Chloride Riders 20 MEQ in Premix Bag 1 BAG IV SCH ×2 (14:16→15:19)
[2022-08-26 17:02] LABS: APPEARANCE,URINE CLEAR (CLEAR); BILIRUBIN,URINE NEGATIVE (NEGATIVE); COLOR,URINE YELLOW (YELLOW); GLUCOSE,URINE NEGATIVE (NEGATIVE); KETONES,URINE 15 mg/dL (NEGATIVE); LEUKOCYTE ESTERASE,URINE NEGATIVE (NEGATIVE); NITRITE,URINE NEGATIVE (NEGATIVE); OCCULT BLOOD,URINE SMALL (NEGATIVE); PROTEIN,URINE NEGATIVE (NEGATIVE); UROBILINOGEN,URINE 0.2 EU/dL (0.2)
[2022-08-26 17:07] LABS: BACTERIA,URINE RARE /HPF (NOT SEEN); WBC,URINE 0-5 /HPF (NOT SEEN)
[2022-08-26] MEDS: Omeprazole 20 MG Cap.CR PO SCH (18:46)
[2022-08-26] MEDS ORDERED: Warfarin 2.5 MG Tab PO ONE (21:00)
[2022-08-26] MEDS: Metoprolol Tartrate 25 MG Tab PO SCH (21:05)
[2022-08-26] MEDS: Donepezil 10 MG Tab PO SCH (21:05)
[2022-08-26] MEDS: Tamsulosin 0.4 MG Cap.ER PO SCH (21:11)
[2022-08-26] MEDS: Albuterol HFA 18 Gm Inhaler INH PRN (21:23)
[2022-08-27] MEDS: Albuterol HFA 18 Gm Inhaler INH PRN ×2 (02:41→10:26)
[2022-08-27] MEDS: oxyCODONE 5 MG Tab PO PRN (03:02)
[2022-08-27] MEDS: HYDROmorphone 0.5 MG/0.5 ML Syringe IVPUSH PRN (04:32)
[2022-08-27] MEDS: Omeprazole 20 MG Cap.CR PO SCH ×2 (06:14→18:15)
[2022-08-27] MEDS: Sodium Chloride 0.9% 1,000 ML IV SCH ×2 (06:14→17:17)
[2022-08-27 07:14] LABS: BASOPHILS PERCENT AUTO 0.1 % (0.2-1.2); EOSINOPHILS PERCENT AUTO 0.2 % (0.0-4.0); HEMATOCRIT 32.4 % (40.0-52.0); HEMOGLOBIN 10.3 g/dL (14.0-18.0); IMMATURE GRAN ABSOLUTE AUTO 0.03 x10^3/uL (0.00-0.07); LYMPHOCYTES ABSOLUTE AUTO 0.9 x10^3/uL (1.0-4.8); LYMPHOCYTES PERCENT AUTO 8.7 % (25.0-50.0); MEAN CORPUSCULAR HEMOGLOBIN 29.8 pg (26.0-32.0); MEAN CORPUSCULAR HGB CONC 31.8 g/dL (32.0-36.0); MEAN CORPUSCULAR VOLUME 93.6 fL (78.0-93.0); MONOCYTES ABSOLUTE AUTO 1.2 x10^3/uL (0.0-0.8); MONOCYTES PERCENT AUTO 11.6 % (2.0-11.0); NEUTROPHILS ABSOLUTE AUTO 8.2 x10^3/uL (1.8-7.7); NEUTROPHILS PERCENT AUTO 79.1 % (50.0-80.0); PLATELET COUNT,PLT 252 x10^3/uL (130-400); RED BLOOD CELL COUNT 3.46 x10^6/uL (4.5-6.0); WHITE BLOOD CELL COUNT,WBC 10.4 x10^3/uL (4.0-10.0)
[2022-08-27 07:29] LABS: INR 2.5 (2.0-3.5); PROTHROMBIN TIME 26.1 SEC (9.5-12.2)
[2022-08-27 07:33] LABS: CALCIUM 8.7 mg/dL (8.5-10.1); CREATININE 0.8 mg/dL (0.70-1.30); EST CRCL DRUG DOSING (CG) 55.69 mL/min; POTASSIUM,K 3.2 mmol/L (3.5-5.1)
[2022-08-27 07:34] LABS: ANION GAP 15.2 mmol/L (5-15)
[2022-08-27] MEDS ORDERED: Non-Formulary Medication 1 Each (Lisinopril/Hydrochlorothiazide 1 EACH Tablet) PO SCH (09:00)
[2022-08-27] MEDS: Simethicone 80 MG Tab.Chew PO SCH ×3 (09:26→20:48)
[2022-08-27] MEDS: Docusate Sodium 100 MG Cap PO SCH (09:26)
[2022-08-27] MEDS: Ferrous Sulfate 325 MG Tab PO SCH (09:26)
[2022-08-27] MEDS: Potassium Chloride 10 MEQ Tab.ER PO SCH (09:26)
[2022-08-27] MEDS: Rosuvastatin 20 MG Tab PO SCH (09:27)
[2022-08-27] MEDS: Finasteride 5 MG Tab PO SCH (09:27)
[2022-08-27] MEDS: Lisinopril 5 MG Tab PO SCH (09:27)
[2022-08-27] MEDS: Metoprolol Tartrate 25 MG Tab PO SCH ×2 (09:29→20:49)
[2022-08-27] MEDS ORDERED: Potassium Chloride 20 MEQ Tab.ER PO ONE (09:30)
[2022-08-27] MEDS: Hydrochlorothiazide 25 MG Tab PO SCH (09:31)
[2022-08-27] MEDS: Tiotropium BR/Olodaterol HCL 4 GM Inhalation Spray 2.5mcg/1 dose; 10 doses INH SCH (09:32)
[2022-08-27] MEDS: Donepezil 10 MG Tab PO SCH (20:48)
[2022-08-27] MEDS: Tamsulosin 0.4 MG Cap.ER PO SCH (20:49)
[2022-08-27] MEDS ORDERED: Warfarin 2.5 MG Tab PO SCH (21:00)
[2022-08-28] MEDS: Sodium Chloride 0.9% 1,000 ML IV SCH ×2 (03:24→15:03)
[2022-08-28] MEDS: Omeprazole 20 MG Cap.CR PO SCH ×2 (06:14→16:32)
[2022-08-28 08:13] LABS: PROTHROMBIN TIME 59.9 SEC (9.5-12.2)
[2022-08-28 08:16] LABS: INR 5.9 (2.0-3.5)
[2022-08-28 09:06] LABS: EOSINOPHILS PERCENT AUTO 0.2 % (0.0-4.0); HEMATOCRIT 32.7 % (40.0-52.0); HEMOGLOBIN 10.5 g/dL (14.0-18.0); IMMATURE GRAN ABSOLUTE AUTO 0.03 x10^3/uL (0.00-0.07); LYMPHOCYTES ABSOLUTE AUTO 0.9 x10^3/uL (1.0-4.8); LYMPHOCYTES PERCENT AUTO 7.7 % (25.0-50.0); MEAN CORPUSCULAR HEMOGLOBIN 30.1 pg (26.0-32.0); MEAN CORPUSCULAR HGB CONC 32.1 g/dL (32.0-36.0); MEAN CORPUSCULAR VOLUME 93.7 fL (78.0-93.0); MONOCYTES ABSOLUTE AUTO 1.3 x10^3/uL (0.0-0.8); MONOCYTES PERCENT AUTO 11.5 % (2.0-11.0); NEUTROPHILS ABSOLUTE AUTO 9.3 x10^3/uL (1.8-7.7); NEUTROPHILS PERCENT AUTO 80.3 % (50.0-80.0); PLATELET COUNT,PLT 250 x10^3/uL (130-400); RED BLOOD CELL COUNT 3.49 x10^6/uL (4.5-6.0); WHITE BLOOD CELL COUNT,WBC 11.5 x10^3/uL (4.0-10.0)
[2022-08-28 09:15] LABS: A/G RATIO 0.67; ALBUMIN 2.4 g/dL (3.4-5.0); BILIRUBIN TOTAL 0.6 mg/dL (0.2-1.0); CALCIUM 8.7 mg/dL (8.5-10.1); CREATININE 0.8 mg/dL (0.70-1.30); EST CRCL DRUG DOSING (CG) 56.14 mL/min; POTASSIUM,K 3.3 mmol/L (3.5-5.1)
[2022-08-28 09:19] LABS: ANION GAP 16.3 mmol/L (5-15)
[2022-08-28] MEDS ORDERED: Potassium Chloride 20 MEQ Tab.ER PO ONE (09:25)
[2022-08-28] MEDS: Metoprolol Tartrate 25 MG Tab PO SCH ×2 (10:16→20:19)
[2022-08-28] MEDS: Hydrochlorothiazide 25 MG Tab PO SCH ×2 (10:16→16:31)
[2022-08-28] MEDS: Finasteride 5 MG Tab PO SCH (10:18)
[2022-08-28] MEDS: Rosuvastatin 20 MG Tab PO SCH (10:18)
[2022-08-28] MEDS: Lisinopril 5 MG Tab PO SCH (10:18)
[2022-08-28] MEDS: Simethicone 80 MG Tab.Chew PO SCH ×3 (10:18→20:19)
[2022-08-28] MEDS: Ferrous Sulfate 325 MG Tab PO SCH (10:18)
[2022-08-28] MEDS: Docusate Sodium 100 MG Cap PO SCH (10:18)
[2022-08-28] MEDS: Potassium Chloride 10 MEQ Tab.ER PO SCH (10:19)
[2022-08-28] MEDS: Metoclopramide 10 MG/2 ML SDV IVPUSH SCH ×3 (10:19→20:37)
[2022-08-28] MEDS: Tiotropium BR/Olodaterol HCL 4 GM Inhalation Spray 2.5mcg/1 dose; 10 doses INH SCH (10:20)
[2022-08-28] MEDS ORDERED: Hydrochlorothiazide 25 MG Tab PO SCH (15:30)
[2022-08-28] MEDS ORDERED: Lisinopril 10 MG Tab PO SCH ×2 (15:30→16:30)
[2022-08-28] MEDS: Donepezil 10 MG Tab PO SCH (20:19)
[2022-08-28] MEDS: Tamsulosin 0.4 MG Cap.ER PO SCH (20:19)
[2022-08-29] MEDS: Metoclopramide 10 MG/2 ML SDV IVPUSH SCH ×2 (04:40→10:17)
[2022-08-29] MEDS: Sodium Chloride 0.9% 1,000 ML IV SCH ×2 (04:42→21:14)
[2022-08-29] MEDS: Omeprazole 20 MG Cap.CR PO SCH (06:20)
[2022-08-29 08:12] LABS: BASOPHILS PERCENT AUTO 0.1 % (0.2-1.2); EOSINOPHILS ABSOLUTE AUTO 0.1 x10^3/uL (0.0-0.5); EOSINOPHILS PERCENT AUTO 0.4 % (0.0-4.0); HEMATOCRIT 32.1 % (40.0-52.0); HEMOGLOBIN 10.1 g/dL (14.0-18.0); IMMATURE GRAN ABSOLUTE AUTO 0.04 x10^3/uL (0.00-0.07); LYMPHOCYTES PERCENT AUTO 7.9 % (25.0-50.0); MEAN CORPUSCULAR HEMOGLOBIN 29.4 pg (26.0-32.0); MEAN CORPUSCULAR HGB CONC 31.5 g/dL (32.0-36.0); MEAN CORPUSCULAR VOLUME 93.6 fL (78.0-93.0); MONOCYTES ABSOLUTE AUTO 1.5 x10^3/uL (0.0-0.8); MONOCYTES PERCENT AUTO 11.8 % (2.0-11.0); NEUTROPHILS ABSOLUTE AUTO 9.9 x10^3/uL (1.8-7.7); NEUTROPHILS PERCENT AUTO 79.5 % (50.0-80.0); PLATELET COUNT,PLT 249 x10^3/uL (130-400); RED BLOOD CELL COUNT 3.43 x10^6/uL (4.5-6.0); WHITE BLOOD CELL COUNT,WBC 12.5 x10^3/uL (4.0-10.0)
[2022-08-29 08:39] LABS: A/G RATIO 0.63; ALBUMIN 2.2 g/dL (3.4-5.0); BILIRUBIN TOTAL 0.7 mg/dL (0.2-1.0); CALCIUM 8.5 mg/dL (8.5-10.1); CREATININE 0.7 mg/dL (0.70-1.30); EST CRCL DRUG DOSING (CG) 65.99 mL/min; POTASSIUM,K 3.1 mmol/L (3.5-5.1); PROTEIN TOTAL,TP 5.7 g/dL (6.4-8.2)
[2022-08-29 08:42] LABS: ANION GAP 13.1 mmol/L (5-15)
[2022-08-29 08:48] LABS: PROTHROMBIN TIME 102.3 SEC (9.5-12.2)
[2022-08-29 08:51] LABS: INR 10.4 (2.0-3.5)
[2022-08-29] MEDS ORDERED: Iopamidol 612 MG/ML 100 ML Bottle IVPUSH ONE (09:11)
[2022-08-29] MEDS: Finasteride 5 MG Tab PO SCH (10:11)
[2022-08-29] MEDS: Hydrochlorothiazide 25 MG Tab PO SCH (10:11)
[2022-08-29] MEDS: Simethicone 80 MG Tab.Chew PO SCH ×3 (10:11→20:33)
[2022-08-29] MEDS: Docusate Sodium 100 MG Cap PO SCH (10:11)
[2022-08-29] MEDS: Ferrous Sulfate 325 MG Tab PO SCH (10:12)
[2022-08-29] MEDS: Rosuvastatin 20 MG Tab PO SCH (10:12)
[2022-08-29] MEDS: Lisinopril 20 MG Tab PO SCH (10:12)
[2022-08-29] MEDS: Metoprolol Tartrate 25 MG Tab PO SCH ×2 (10:16→20:34)
[2022-08-29] MEDS: Potassium Chloride 10 MEQ Tab.ER PO SCH (10:16)
[2022-08-29] MEDS ORDERED: Potassium Chloride Riders 20 MEQ in Premix Bag 1 BAG IV ONE (10:36)
[2022-08-29] MEDS: Tiotropium BR/Olodaterol HCL 4 GM Inhalation Spray 2.5mcg/1 dose; 10 doses INH SCH (13:50)
[2022-08-29] MEDS: HYDROmorphone 0.5 MG/0.5 ML Syringe IVPUSH PRN (19:46)
[2022-08-29] MEDS ORDERED: [UNRECOGNIZED DRUG - REMARK] ONE (20:00)
[2022-08-29] MEDS: Tamsulosin 0.4 MG Cap.ER PO SCH (20:32)
[2022-08-29] MEDS: Donepezil 10 MG Tab PO SCH (20:33)
[2022-08-29] MEDS: oxyCODONE 5 MG Tab PO PRN (23:51)
[2022-08-30 07:04] LABS: HEMATOCRIT 31.3 % (40.0-52.0); HEMOGLOBIN 10.1 g/dL (14.0-18.0); MEAN CORPUSCULAR VOLUME 93.2 fL (78.0-93.0); RED BLOOD CELL COUNT 3.36 x10^6/uL (4.5-6.0); WHITE BLOOD CELL COUNT,WBC 10.3 x10^3/uL (4.0-10.0)
[2022-08-30 07:05] LABS: BASOPHILS PERCENT AUTO 0.1 % (0.2-1.2); EOSINOPHILS ABSOLUTE AUTO 0.1 x10^3/uL (0.0-0.5); EOSINOPHILS PERCENT AUTO 1.2 % (0.0-4.0); IMMATURE GRAN ABSOLUTE AUTO 0.04 x10^3/uL (0.00-0.07); LYMPHOCYTES ABSOLUTE AUTO 0.9 x10^3/uL (1.0-4.8); LYMPHOCYTES PERCENT AUTO 9.1 % (25.0-50.0); MEAN CORPUSCULAR HEMOGLOBIN 30.1 pg (26.0-32.0); MEAN CORPUSCULAR HGB CONC 32.3 g/dL (32.0-36.0); MONOCYTES ABSOLUTE AUTO 1.5 x10^3/uL (0.0-0.8); MONOCYTES PERCENT AUTO 14.5 % (2.0-11.0); NEUTROPHILS ABSOLUTE AUTO 7.7 x10^3/uL (1.8-7.7); NEUTROPHILS PERCENT AUTO 74.7 % (50.0-80.0); PLATELET COUNT,PLT 247 x10^3/uL (130-400)
[2022-08-30 07:18] LABS: INR 1.2 (2.0-3.5); PROTHROMBIN TIME 13.3 SEC (9.5-12.2)
[2022-08-30 07:27] LABS: A/G RATIO 0.64; ALBUMIN 2.1 g/dL (3.4-5.0); BILIRUBIN TOTAL 0.4 mg/dL (0.2-1.0); CALCIUM 8.6 mg/dL (8.5-10.1); CREATININE 0.7 mg/dL (0.70-1.30); EST CRCL DRUG DOSING (CG) 68.19 mL/min; POTASSIUM,K 3.1 mmol/L (3.5-5.1); PROTEIN TOTAL,TP 5.4 g/dL (6.4-8.2)
[2022-08-30 07:28] LABS: ANION GAP 7.1 mmol/L (5-15)
[2022-08-30] MEDS ORDERED: Omeprazole 20 MG Cap.CR PO SCH (09:00)
[2022-08-30] MEDS ORDERED: Potassium Chloride 10 MEQ Tab.ER PO SCH (09:00)
[2022-08-30] MEDS ORDERED: Enoxaparin 40 MG/0.4 ML Syringe SUBCUT ONE (09:04)
[2022-08-30] MEDS: Finasteride 5 MG Tab PO SCH (09:08)
[2022-08-30] MEDS: Rosuvastatin 20 MG Tab PO SCH (09:08)
[2022-08-30] MEDS: Hydrochlorothiazide 25 MG Tab PO SCH (09:09)
[2022-08-30] MEDS: Docusate Sodium 100 MG Cap PO SCH (09:09)
[2022-08-30] MEDS: Simethicone 80 MG Tab.Chew PO SCH (09:09)
[2022-08-30] MEDS: Lisinopril 20 MG Tab PO SCH (09:11)
[2022-08-30] MEDS: Ferrous Sulfate 325 MG Tab PO SCH (09:11)
[2022-08-30] MEDS: Metoprolol Tartrate 25 MG Tab PO SCH (09:11)
[2022-08-30 09:16] LABS: MAGNESIUM 1.6 mg/dL (1.8-2.4)
[2022-08-30] MEDS: Tiotropium BR/Olodaterol HCL 4 GM Inhalation Spray 2.5mcg/1 dose; 10 doses INH SCH (09:16)
[2022-08-30] MEDS ORDERED: Magnesium Oxide 400 MG Tab PO SCH (10:45)
[2022-08-30] MEDS ORDERED: Spironolactone 25 MG Tab PO SCH (10:45)
[2022-08-30] MEDS ORDERED: Warfarin 2.5 MG Tab PO SCH (21:00)
[2022-09-03] MEDS ORDERED: Warfarin 2.5 MG Tab PO SCH (21:00)
== END 2022-08-30 11:30 | disposition swing bed (61) | DRG 388 ==
LOC: VM.MS 09:45
PROVIDERS: ADMIT Family Medicine; ATTEND Family Medicine
DX: K56.7 Ileus, unspecified (principal); I50.33 Acute on chronic diastolic (congestive) heart failure; K56.609 Unspecified intestinal obstruction, unspecified as to partial versus complete obstruction; E87.6 Hypokalemia; M06.9 Rheumatoid arthritis, unspecified; M19.90 Unspecified osteoarthritis, unspecified site; D64.9 Anemia, unspecified; I48.91 Unspecified atrial fibrillation; F03.90 Unspecified dementia, unspecified severity, without behavioral disturbance, psychotic disturbance, mood disturbance, and anxiety; K21.9 Gastro-esophageal reflux disease without esophagitis; N40.0 Benign prostatic hyperplasia without lower urinary tract symptoms; J44.9 Chronic obstructive pulmonary disease, unspecified; K59.00 Constipation, unspecified; I11.0 Hypertensive heart disease with heart failure; E78.5 Hyperlipidemia, unspecified; Z85.46 Personal history of malignant neoplasm of prostate; Z79.01 Long term (current) use of anticoagulants; Z79.899 Other long term (current) drug therapy; Z87.11 Personal history of peptic ulcer disease
CPT/HCPCS: 36415; 71045; 71046; 74018; 74177; 80048; 80053; 81001; 82150; 83690; 83735; 83880; 85025; 85610; 87338; 97162-GP; A9270-GY; J1170; J1650; J2405; J2765; J3430; J3480; J3490; J7030; Q9967

== ENCOUNTER 2022-08-30 11:31 | Inpatient (IN) | payer MEDICARE, OTHER ==
[2022-08-30] MEDS ORDERED: Ondansetron 4 MG/2 ML SDV IV PRN (12:08)
[2022-08-30] MEDS ORDERED: Acetaminophen 325 MG Tab PO PRN (12:08)
[2022-08-30] MEDS ORDERED: Albuterol HFA 18 Gm Inhaler INH PRN (12:08)
[2022-08-30] MEDS ORDERED: Simethicone 80 MG Tab.Chew PO SCH (13:00)
[2022-08-30] MEDS: Potassium Chloride 10 MEQ Tab.ER PO SCH ×2 (15:28→20:01)
[2022-08-30] MEDS: Magnesium Oxide 400 MG Tab PO SCH ×2 (15:28→20:58)
[2022-08-30] MEDS: Simethicone 80 MG Tab.Chew PO SCH ×2 (15:28→20:59)
[2022-08-30] MEDS: Spironolactone 25 MG Tab PO SCH (15:29)
[2022-08-30] MEDS ORDERED: Potassium Chloride 10 MEQ Tab.ER PO SCH (18:00)
[2022-08-30] MEDS ORDERED: Warfarin 2.5 MG Tab PO SCH (21:00)
[2022-08-30] MEDS ORDERED: Donepezil 10 MG Tab PO SCH (21:00)
[2022-08-30] MEDS ORDERED: Tamsulosin 0.4 MG Cap.ER PO SCH (21:00)
[2022-08-30] MEDS: Metoprolol Tartrate 25 MG Tab PO SCH (21:02)
[2022-08-31] MEDS ORDERED: Omeprazole 20 MG Cap.CR PO SCH (07:00)
[2022-08-31 07:11] LABS: INR 1.2 (2.0-3.5); PROTHROMBIN TIME 12.6 SEC (9.5-12.2)
[2022-08-31 07:20] LABS: A/G RATIO 0.61; ALBUMIN 2.2 g/dL (3.4-5.0); BILIRUBIN TOTAL 0.5 mg/dL (0.2-1.0); CALCIUM 8.7 mg/dL (8.5-10.1); CREATININE 0.6 mg/dL (0.70-1.30); EST CRCL DRUG DOSING (CG) 79.23 mL/min; POTASSIUM,K 3.6 mmol/L (3.5-5.1); PROTEIN TOTAL,TP 5.8 g/dL (6.4-8.2)
[2022-08-31 07:21] LABS: ANION GAP 9.6 mmol/L (5-15)
[2022-08-31] MEDS ORDERED: Ferrous Sulfate 325 MG Tab PO SCH (09:00)
[2022-08-31] MEDS ORDERED: Lisinopril 20 MG Tab PO SCH (09:00)
[2022-08-31] MEDS ORDERED: Tiotropium BR/Olodaterol HCL 4 GM Inhalation Spray 2.5mcg/1 dose; 10 doses INH SCH (09:00)
[2022-08-31] MEDS ORDERED: Hydrochlorothiazide 25 MG Tab PO SCH (09:00)
[2022-08-31] MEDS ORDERED: Finasteride 5 MG Tab PO SCH (09:00)
[2022-08-31] MEDS ORDERED: Rosuvastatin 20 MG Tab PO SCH (09:00)
[2022-08-31] MEDS ORDERED: Docusate Sodium 100 MG Cap PO SCH (09:00)
[2022-08-31] MEDS: Magnesium Oxide 400 MG Tab PO SCH (09:32)
[2022-08-31] MEDS: Spironolactone 25 MG Tab PO SCH (09:33)
[2022-08-31] MEDS: Metoprolol Tartrate 25 MG Tab PO SCH (09:35)
[2022-08-31] MEDS: Potassium Chloride 10 MEQ Tab.ER PO SCH ×2 (09:35→12:30)
[2022-08-31] MEDS: Simethicone 80 MG Tab.Chew PO SCH (09:36)
== END 2022-08-31 15:00 | disposition home or self-care (01) | DRG 389 ==
LOC: VM.MS 11:31 → UNDOADMIN 15:17 → VM.MS 15:17
PROVIDERS: ADMIT Internal Medicine; ATTEND Internal Medicine
DX: K56.609 Unspecified intestinal obstruction, unspecified as to partial versus complete obstruction (principal); I50.32 Chronic diastolic (congestive) heart failure; E87.6 Hypokalemia; I48.91 Unspecified atrial fibrillation; F03.90 Unspecified dementia, unspecified severity, without behavioral disturbance, psychotic disturbance, mood disturbance, and anxiety; N40.0 Benign prostatic hyperplasia without lower urinary tract symptoms; K21.9 Gastro-esophageal reflux disease without esophagitis; D64.9 Anemia, unspecified; E78.5 Hyperlipidemia, unspecified; Z66 Do not resuscitate; I11.0 Hypertensive heart disease with heart failure; J44.9 Chronic obstructive pulmonary disease, unspecified; K56.7 Ileus, unspecified; K59.00 Constipation, unspecified; Z79.01 Long term (current) use of anticoagulants; Z79.899 Other long term (current) drug therapy; Z87.11 Personal history of peptic ulcer disease
CPT/HCPCS: 36415; 80053; 83735; 85610; 97164-GP; A9270-GY

== ENCOUNTER 2023-02-06 08:38 | Inpatient (IN) | payer MEDICARE, OTHER ==
[2023-02-06] MEDS ORDERED: Sodium Chloride 0.9% 10 ML Syringe FLUSH PRN (08:46)
[2023-02-06] MEDS ORDERED: Albuterol/Ipratropium 3.0-0.5 MG/3 ML Neb Soln NEB ONE (08:46)
[2023-02-06] MEDS ORDERED: methylPREDNISolone Sodium Succinate 125 MG/2 ML SDV IVPUSH ONE (08:47)
[2023-02-06 08:56] LABS: BASOPHILS PERCENT AUTO 0.1 % (0.2-1.2); HEMATOCRIT 38.3 % (40.0-52.0); HEMOGLOBIN 11.9 g/dL (14.0-18.0); IMMATURE GRAN ABSOLUTE AUTO 0.07 x10^3/uL (0.00-0.07); LYMPHOCYTES ABSOLUTE AUTO 0.5 x10^3/uL (1.0-4.8); LYMPHOCYTES PERCENT AUTO 2.4 % (25.0-50.0); MEAN CORPUSCULAR HEMOGLOBIN 29.9 pg (26.0-32.0); MEAN CORPUSCULAR HGB CONC 31.1 g/dL (32.0-36.0); MEAN CORPUSCULAR VOLUME 96.2 fL (78.0-93.0); MONOCYTES ABSOLUTE AUTO 2.2 x10^3/uL (0.0-0.8); MONOCYTES PERCENT AUTO 11.3 % (2.0-11.0); NEUTROPHILS ABSOLUTE AUTO 16.6 x10^3/uL (1.8-7.7); NEUTROPHILS PERCENT AUTO 85.8 % (50.0-80.0); RED BLOOD CELL COUNT 3.98 x10^6/uL (4.5-6.0); WHITE BLOOD CELL COUNT,WBC 19.3 x10^3/uL (4.0-10.0)
[2023-02-06 09:10] LABS: PLATELET COUNT,PLT 216 x10^3/uL (130-400)
[2023-02-06 09:19] LABS: A/G RATIO 0.63; ALANINE AMINOTRANSFERASE,ALT 20 U/L (16-63); ALBUMIN 2.6 g/dL (3.4-5.0); ALKALINE PHOSPHATASE 118 U/L (46-116); ASPARTATE AMNIOTRANSFERASE,AST 14 U/L (15-37); BILIRUBIN TOTAL 2.2 mg/dL (0.2-1.0); BLOOD UREA NITROGEN,BUN 19 mg/dL (7-18); C-REACTIVE PROTEIN 24.93 mg/dL (<=0.30); CALCIUM 9.1 mg/dL (8.5-10.1); CARBON DIOXIDE,CO2 30 mmol/L (21-32); CHLORIDE,CL 104 mmol/L (98-107); CREATININE 0.9 mg/dL (0.70-1.30); GLUCOSE RANDOM 125 mg/dL (70-99); POTASSIUM,K 3.8 mmol/L (3.5-5.1); PRO B-TYPE NATRIUR PEPT,BNPPRO 4420 pg/mL (<=450); PROTEIN TOTAL,TP 6.7 g/dL (6.4-8.2); SODIUM,NA 143 mmol/L (136-145)
[2023-02-06 09:20] LABS: ANION GAP 12.8 mmol/L (5-15); ESTIMATED GFR 82 mL/min (>=60)
[2023-02-06 10:06] LABS: CORONAVIRUS COVID-19 NAA NEGATIVE (NEGATIVE); INFLUENZA A NAA NEGATIVE (NEGATIVE); INFLUENZA B NAA NEGATIVE (NEGATIVE); RESPIRATORY SYNCYTIAL VIR NAA NEGATIVE (NEGATIVE)
[2023-02-06] MEDS ORDERED: Furosemide 40 MG/4 ML VIAL IV ONE (10:38)
[2023-02-06] MEDS: Albuterol/Ipratropium 3.0-0.5 MG/3 ML Neb Soln NEB SCH ×3 (11:35→21:50)
[2023-02-06] MEDS: cefTRIAXone 1 GM Vial IVPUSH SCH (11:39)
[2023-02-06] MEDS ORDERED: Acetaminophen 500 MG Tab PO PRN (11:46)
[2023-02-06 11:59] LABS: INR 1.8 (0.9-1.1); PROTHROMBIN TIME 18.6 SEC (9.5-12.2)
[2023-02-06] MEDS: Azithromycin 500 MG in Sodium Chloride 0.9% 250 ML IV SCH (12:23)
[2023-02-06] MEDS: Omeprazole 20 MG Cap.CR PO SCH (16:46)
[2023-02-06 20:11] LABS: APPEARANCE,URINE CLEAR (CLEAR); BILIRUBIN,URINE NEGATIVE (NEGATIVE); COLOR,URINE LIGHT YELLOW (YELLOW); GLUCOSE,URINE NEGATIVE (NEGATIVE); KETONES,URINE NEGATIVE (NEGATIVE); LEUKOCYTE ESTERASE,URINE NEGATIVE (NEGATIVE); NITRITE,URINE NEGATIVE (NEGATIVE); OCCULT BLOOD,URINE TRACE-INTACT (NEGATIVE); PH,URINE 5.5 (5.0-8.0); PROTEIN,URINE NEGATIVE (NEGATIVE); UROBILINOGEN,URINE 0.2 EU/dL (0.2)
[2023-02-06 20:12] LABS: BACTERIA,URINE OCCASIONAL /HPF (NOT SEEN); MUCUS,URINE OCCASIONAL /LPF (NOT SEEN); RBC,URINE 0-5 /HPF (NOT SEEN); WBC,URINE 0-5 /HPF (NOT SEEN)
[2023-02-06] MEDS ORDERED: Non-Formulary Medication 1 Each (Magnesium Oxide [Magnesium Oxide] 250 MG Tablet) PO SCH (21:00)
[2023-02-06] MEDS ORDERED: Sennosides 8.6 MG Tab PO SCH (21:00)
[2023-02-06] MEDS: Tamsulosin 0.4 MG Cap.ER PO SCH (21:48)
[2023-02-06] MEDS: Magnesium Oxide 400 MG Tab PO SCH (21:49)
[2023-02-06] MEDS: Rosuvastatin 20 MG Tab PO SCH (21:49)
[2023-02-06] MEDS: Finasteride 5 MG Tab PO SCH (21:49)
[2023-02-06] MEDS: Simethicone 80 MG Tab.Chew PO SCH (21:50)
[2023-02-06] MEDS: Potassium Chloride 10 MEQ Tab.ER PO SCH (21:50)
[2023-02-07] MEDS: Omeprazole 20 MG Cap.CR PO SCH ×2 (06:16→17:00)
[2023-02-07 06:54] LABS: HEMATOCRIT 34.8 % (40.0-52.0); HEMOGLOBIN 11.2 g/dL (14.0-18.0); IMMATURE GRAN ABSOLUTE AUTO 0.04 x10^3/uL (0.00-0.07); LYMPHOCYTES ABSOLUTE AUTO 0.5 x10^3/uL (1.0-4.8); LYMPHOCYTES PERCENT AUTO 3.8 % (25.0-50.0); MEAN CORPUSCULAR HEMOGLOBIN 30.9 pg (26.0-32.0); MEAN CORPUSCULAR HGB CONC 32.2 g/dL (32.0-36.0); MEAN CORPUSCULAR VOLUME 95.9 fL (78.0-93.0); MONOCYTES ABSOLUTE AUTO 0.7 x10^3/uL (0.0-0.8); MONOCYTES PERCENT AUTO 5.1 % (2.0-11.0); NEUTROPHILS ABSOLUTE AUTO 12.6 x10^3/uL (1.8-7.7); NEUTROPHILS PERCENT AUTO 90.8 % (50.0-80.0); RED BLOOD CELL COUNT 3.63 x10^6/uL (4.5-6.0); WHITE BLOOD CELL COUNT,WBC 13.8 x10^3/uL (4.0-10.0)
[2023-02-07 07:00] LABS: INR 2.3 (0.9-1.1)
[2023-02-07 07:05] LABS: PLATELET COUNT,PLT 222 x10^3/uL (130-400)
[2023-02-07] MEDS: Albuterol/Ipratropium 3.0-0.5 MG/3 ML Neb Soln NEB SCH ×4 (07:08→19:59)
[2023-02-07 07:11] LABS: A/G RATIO 0.55; ALBUMIN 2.2 g/dL (3.4-5.0); ANION GAP 9.7 mmol/L (5-15); BILIRUBIN TOTAL 0.6 mg/dL (0.2-1.0); C-REACTIVE PROTEIN 19.83 mg/dL (<=0.30); CALCIUM 9.1 mg/dL (8.5-10.1); CREATININE 0.8 mg/dL (0.70-1.30); EST CRCL DRUG DOSING (CG) 61.39 mL/min; MAGNESIUM 2.1 mg/dL (1.8-2.4); POTASSIUM,K 3.7 mmol/L (3.5-5.1); PROTEIN TOTAL,TP 6.2 g/dL (6.4-8.2)
[2023-02-07] MEDS: Magnesium Oxide 400 MG Tab PO SCH ×2 (09:47→20:00)
[2023-02-07] MEDS: Potassium Chloride 10 MEQ Tab.ER PO SCH ×2 (09:47→20:00)
[2023-02-07] MEDS: Ferrous Sulfate 325 MG Tab PO SCH (09:47)
[2023-02-07] MEDS: cefTRIAXone 1 GM Vial IVPUSH SCH (09:47)
[2023-02-07] MEDS: Phytonadione 100 MCG Tab PO SCH (09:47)
[2023-02-07] MEDS: Sennosides 8.6 MG Tab PO SCH ×2 (09:47→20:01)
[2023-02-07] MEDS: Folic Acid 1 MG Tab PO SCH (09:47)
[2023-02-07] MEDS: Simethicone 80 MG Tab.Chew PO SCH ×2 (09:48→20:00)
[2023-02-07] MEDS: Azithromycin 500 MG in Sodium Chloride 0.9% 250 ML IV SCH (11:26)
[2023-02-07] MEDS ORDERED: Furosemide 40 MG/4 ML VIAL IV ONE (13:15)
[2023-02-07] MEDS: Warfarin 2.5 MG Tab PO SCH (20:00)
[2023-02-07] MEDS: Tamsulosin 0.4 MG Cap.ER PO SCH (20:00)
[2023-02-07] MEDS: Rosuvastatin 20 MG Tab PO SCH (20:00)
[2023-02-07] MEDS: Finasteride 5 MG Tab PO SCH (20:00)
[2023-02-08] MEDS: Omeprazole 20 MG Cap.CR PO SCH ×2 (06:23→16:42)
[2023-02-08 06:58] LABS: BASOPHILS PERCENT AUTO 0.1 % (0.2-1.2); HEMATOCRIT 34.8 % (40.0-52.0); HEMOGLOBIN 10.9 g/dL (14.0-18.0); IMMATURE GRAN ABSOLUTE AUTO 0.08 x10^3/uL (0.00-0.07); LYMPHOCYTES ABSOLUTE AUTO 0.8 x10^3/uL (1.0-4.8); LYMPHOCYTES PERCENT AUTO 4.4 % (25.0-50.0); MEAN CORPUSCULAR HEMOGLOBIN 30.3 pg (26.0-32.0); MEAN CORPUSCULAR HGB CONC 31.3 g/dL (32.0-36.0); MEAN CORPUSCULAR VOLUME 96.7 fL (78.0-93.0); MONOCYTES ABSOLUTE AUTO 1.2 x10^3/uL (0.0-0.8); MONOCYTES PERCENT AUTO 6.8 % (2.0-11.0); PLATELET COUNT,PLT 240 x10^3/uL (130-400); WHITE BLOOD CELL COUNT,WBC 18.1 x10^3/uL (4.0-10.0)
[2023-02-08] MEDS: Albuterol/Ipratropium 3.0-0.5 MG/3 ML Neb Soln NEB SCH ×4 (07:02→20:03)
[2023-02-08 07:05] LABS: NEUTROPHILS PERCENT AUTO 88.3 % (50.0-80.0)
[2023-02-08 07:13] LABS: INR 2.3 (0.9-1.1); PROTHROMBIN TIME 23.5 SEC (9.5-12.2)
[2023-02-08 07:20] LABS: A/G RATIO 0.59; ALBUMIN 2.2 g/dL (3.4-5.0); BILIRUBIN TOTAL 0.4 mg/dL (0.2-1.0); C-REACTIVE PROTEIN 10.44 mg/dL (<=0.30); CALCIUM 8.6 mg/dL (8.5-10.1); CREATININE 0.9 mg/dL (0.70-1.30); EST CRCL DRUG DOSING (CG) 54.09 mL/min; POTASSIUM,K 3.9 mmol/L (3.5-5.1); PROTEIN TOTAL,TP 5.9 g/dL (6.4-8.2)
[2023-02-08 07:21] LABS: ANION GAP 9.9 mmol/L (5-15)
[2023-02-08] MEDS: Potassium Chloride 10 MEQ Tab.ER PO SCH ×2 (09:04→20:04)
[2023-02-08] MEDS: Phytonadione 100 MCG Tab PO SCH (09:05)
[2023-02-08] MEDS: Sennosides 8.6 MG Tab PO SCH ×2 (09:05→20:05)
[2023-02-08] MEDS: Folic Acid 1 MG Tab PO SCH (09:05)
[2023-02-08] MEDS: Simethicone 80 MG Tab.Chew PO SCH ×2 (09:06→20:05)
[2023-02-08] MEDS: Ferrous Sulfate 325 MG Tab PO SCH (09:06)
[2023-02-08] MEDS: Magnesium Oxide 400 MG Tab PO SCH ×2 (09:06→20:04)
[2023-02-08] MEDS: Furosemide 20 MG Tab PO SCH (10:53)
[2023-02-08] MEDS: cefTRIAXone 2 GM Vial IVPUSH SCH (10:54)
[2023-02-08] MEDS: Azithromycin 500 MG in Sodium Chloride 0.9% 250 ML IV SCH (11:15)
[2023-02-08] MEDS ORDERED: Warfarin 2.5 MG Tab PO SCH (20:00)
[2023-02-08] MEDS: Rosuvastatin 20 MG Tab PO SCH (20:03)
[2023-02-08] MEDS: Finasteride 5 MG Tab PO SCH (20:04)
[2023-02-08] MEDS: Tamsulosin 0.4 MG Cap.ER PO SCH (20:05)
[2023-02-09] MEDS: Albuterol/Ipratropium 3.0-0.5 MG/3 ML Neb Soln NEB SCH ×4 (06:05→20:13)
[2023-02-09] MEDS: Omeprazole 20 MG Cap.CR PO SCH ×2 (06:05→16:35)
[2023-02-09 06:58] LABS: EOSINOPHILS ABSOLUTE AUTO 0.1 x10^3/uL (0.0-0.5); EOSINOPHILS PERCENT AUTO 0.4 % (0.0-4.0); HEMATOCRIT 37.6 % (40.0-52.0); HEMOGLOBIN 11.5 g/dL (14.0-18.0); LYMPHOCYTES ABSOLUTE AUTO 1.3 x10^3/uL (1.0-4.8); LYMPHOCYTES PERCENT AUTO 7.9 % (25.0-50.0); MEAN CORPUSCULAR HEMOGLOBIN 29.9 pg (26.0-32.0); MEAN CORPUSCULAR HGB CONC 30.6 g/dL (32.0-36.0); MEAN CORPUSCULAR VOLUME 97.7 fL (78.0-93.0); MONOCYTES ABSOLUTE AUTO 1.5 x10^3/uL (0.0-0.8); MONOCYTES PERCENT AUTO 9.1 % (2.0-11.0); NEUTROPHILS ABSOLUTE AUTO 13.1 x10^3/uL (1.8-7.7); PLATELET COUNT,PLT 239 x10^3/uL (130-400); RED BLOOD CELL COUNT 3.85 x10^6/uL (4.5-6.0)
[2023-02-09 07:14] LABS: INR 2.8 (0.9-1.1); PROTHROMBIN TIME 28.6 SEC (9.5-12.2)
[2023-02-09 07:18] LABS: A/G RATIO 0.59; ALBUMIN 2.2 g/dL (3.4-5.0); BILIRUBIN TOTAL 0.4 mg/dL (0.2-1.0); C-REACTIVE PROTEIN 6.29 mg/dL (<=0.30); CALCIUM 8.6 mg/dL (8.5-10.1); CREATININE 0.8 mg/dL (0.70-1.30); EST CRCL DRUG DOSING (CG) 60.6 mL/min; POTASSIUM,K 4.3 mmol/L (3.5-5.1); PROTEIN TOTAL,TP 5.9 g/dL (6.4-8.2)
[2023-02-09 07:19] LABS: ANION GAP 11.3 mmol/L (5-15)
[2023-02-09] MEDS: Sennosides 8.6 MG Tab PO SCH ×2 (08:36→20:15)
[2023-02-09] MEDS: Ferrous Sulfate 325 MG Tab PO SCH (08:36)
[2023-02-09] MEDS: Simethicone 80 MG Tab.Chew PO SCH ×2 (08:36→20:14)
[2023-02-09] MEDS: Folic Acid 1 MG Tab PO SCH (08:36)
[2023-02-09] MEDS: Phytonadione 100 MCG Tab PO SCH (08:36)
[2023-02-09] MEDS: Potassium Chloride 10 MEQ Tab.ER PO SCH ×2 (08:36→20:15)
[2023-02-09] MEDS: Magnesium Oxide 400 MG Tab PO SCH ×2 (08:36→20:15)
[2023-02-09] MEDS: Furosemide 20 MG Tab PO SCH (08:36)
[2023-02-09] MEDS: cefTRIAXone 2 GM Vial IVPUSH SCH (09:59)
[2023-02-09] MEDS: Metoprolol Succinate 25 MG Tab.ER PO SCH (09:59)
[2023-02-09] MEDS: Azithromycin 500 MG in Sodium Chloride 0.9% 250 ML IV SCH (10:02)
[2023-02-09] MEDS ORDERED: FLU (Fluad Quad) 2023-24(65UP)/MF59C/PF 60 MCG/0.5 ML Syringe IM ONE (13:30)
[2023-02-09] MEDS: Warfarin 2.5 MG Tab PO SCH (20:13)
[2023-02-09] MEDS: Tamsulosin 0.4 MG Cap.ER PO SCH (20:13)
[2023-02-09] MEDS: Rosuvastatin 20 MG Tab PO SCH (20:14)
[2023-02-09] MEDS: Finasteride 5 MG Tab PO SCH (20:15)
[2023-02-10] MEDS: Albuterol/Ipratropium 3.0-0.5 MG/3 ML Neb Soln NEB SCH ×2 (04:43→06:22)
[2023-02-10] MEDS: Omeprazole 20 MG Cap.CR PO SCH (06:22)
[2023-02-10 06:37] LABS: BASOPHILS PERCENT AUTO 0.1 % (0.2-1.2); EOSINOPHILS ABSOLUTE AUTO 0.2 x10^3/uL (0.0-0.5); EOSINOPHILS PERCENT AUTO 1.4 % (0.0-4.0); HEMATOCRIT 34.5 % (40.0-52.0); HEMOGLOBIN 11.1 g/dL (14.0-18.0); IMMATURE GRAN ABSOLUTE AUTO 0.19 x10^3/uL (0.00-0.07); LYMPHOCYTES ABSOLUTE AUTO 1.1 x10^3/uL (1.0-4.8); LYMPHOCYTES PERCENT AUTO 7.5 % (25.0-50.0); MEAN CORPUSCULAR HEMOGLOBIN 30.7 pg (26.0-32.0); MEAN CORPUSCULAR HGB CONC 32.2 g/dL (32.0-36.0); MEAN CORPUSCULAR VOLUME 95.3 fL (78.0-93.0); MONOCYTES ABSOLUTE AUTO 1.2 x10^3/uL (0.0-0.8); MONOCYTES PERCENT AUTO 8.2 % (2.0-11.0); NEUTROPHILS ABSOLUTE AUTO 11.5 x10^3/uL (1.8-7.7); NEUTROPHILS PERCENT AUTO 81.5 % (50.0-80.0); PLATELET COUNT,PLT 218 x10^3/uL (130-400); RED BLOOD CELL COUNT 3.62 x10^6/uL (4.5-6.0); WHITE BLOOD CELL COUNT,WBC 14.1 x10^3/uL (4.0-10.0)
[2023-02-10 06:48] LABS: C-REACTIVE PROTEIN 5.35 mg/dL (<=0.30); CALCIUM 8.2 mg/dL (8.5-10.1); CREATININE 0.7 mg/dL (0.70-1.30); EST CRCL DRUG DOSING (CG) 66.92 mL/min
[2023-02-10] MEDS: Magnesium Oxide 400 MG Tab PO SCH (08:11)
[2023-02-10] MEDS: Phytonadione 100 MCG Tab PO SCH (08:11)
[2023-02-10] MEDS: Ferrous Sulfate 325 MG Tab PO SCH (08:11)
[2023-02-10] MEDS: Sennosides 8.6 MG Tab PO SCH (08:11)
[2023-02-10] MEDS: Metoprolol Succinate 25 MG Tab.ER PO SCH (08:11)
[2023-02-10] MEDS: Simethicone 80 MG Tab.Chew PO SCH (08:12)
[2023-02-10] MEDS: Furosemide 20 MG Tab PO SCH (08:12)
[2023-02-10] MEDS: Folic Acid 1 MG Tab PO SCH (08:12)
[2023-02-10] MEDS: Potassium Chloride 10 MEQ Tab.ER PO SCH (08:12)
[2023-02-10] MEDS: cefTRIAXone 2 GM Vial IVPUSH SCH (08:35)
[2023-02-10] MEDS: Azithromycin 500 MG in Sodium Chloride 0.9% 250 ML IV SCH (08:35)
== END 2023-02-10 09:45 | disposition home or self-care (01) | DRG 193 ==
LOC: VM.ED 08:38 → VM.MS 09:59
PROVIDERS: ADMIT Nurse Practitioner Family; ATTEND Family Medicine
DX: J18.9 Pneumonia, unspecified organism (principal); I50.33 Acute on chronic diastolic (congestive) heart failure; E87.0 Hyperosmolality and hypernatremia; J44.1 Chronic obstructive pulmonary disease with (acute) exacerbation; Z66 Do not resuscitate; I48.19 Other persistent atrial fibrillation; J44.0 Chronic obstructive pulmonary disease with (acute) lower respiratory infection; D50.9 Iron deficiency anemia, unspecified; M06.9 Rheumatoid arthritis, unspecified; F41.9 Anxiety disorder, unspecified; I11.0 Hypertensive heart disease with heart failure; K59.09 Other constipation; E78.00 Pure hypercholesterolemia, unspecified; M19.90 Unspecified osteoarthritis, unspecified site; N40.1 Benign prostatic hyperplasia with lower urinary tract symptoms; E78.2 Mixed hyperlipidemia; E87.6 Hypokalemia; E83.42 Hypomagnesemia; K21.9 Gastro-esophageal reflux disease without esophagitis; Z11.52 Encounter for screening for COVID-19; Z87.891 Personal history of nicotine dependence; Z79.899 Other long term (current) drug therapy; Z79.01 Long term (current) use of anticoagulants; Z87.11 Personal history of peptic ulcer disease
CPT/HCPCS: 0241U; 36415; 71045; 80048; 80053; 81001; 83605; 83735; 83880; 85025; 85610; 86140; 87040; 90694; 94640; 94760; 96374; 97110-GP; 97116-GP; 97162-GP; 97164-GP; 97165-GO; 99284; 99285-25; A9270-GY; G0008; J0456; J0696; J1940; J2930; J3490; J7050; J7620-GY

== ENCOUNTER 2023-06-28 08:49 | Inpatient (IN) | payer MEDICARE, OTHER ==
[2023-06-28] MEDS: Albuterol/Ipratropium 3.0-0.5 MG/3 ML Neb Soln NEB ONE (09:15)
[2023-06-28 09:28] LABS: BASOPHILS PERCENT AUTO 0.1 % (0.2-1.2); EOSINOPHILS PERCENT AUTO 0.1 % (0.0-4.0); HEMATOCRIT 38.4 % (40.0-52.0); HEMOGLOBIN 12.4 g/dL (14.0-18.0); IMMATURE GRAN ABSOLUTE AUTO 0.04 x10^3/uL (0.00-0.07); LYMPHOCYTES ABSOLUTE AUTO 0.5 x10^3/uL (1.0-4.8); MEAN CORPUSCULAR HEMOGLOBIN 30.8 pg (26.0-32.0); MEAN CORPUSCULAR HGB CONC 32.3 g/dL (32.0-36.0); MEAN CORPUSCULAR VOLUME 95.5 fL (78.0-93.0); MONOCYTES ABSOLUTE AUTO 1.8 x10^3/uL (0.0-0.8); MONOCYTES PERCENT AUTO 11.8 % (2.0-11.0); NEUTROPHILS ABSOLUTE AUTO 12.7 x10^3/uL (1.8-7.7); NEUTROPHILS PERCENT AUTO 84.4 % (50.0-80.0); PLATELET COUNT,PLT 207 x10^3/uL (130-400); RED BLOOD CELL COUNT 4.02 x10^6/uL (4.5-6.0)
[2023-06-28 09:47] LABS: LYMPHOCYTES PERCENT AUTO 3.3 % (25.0-50.0)
[2023-06-28 09:55] LABS: INR 1.8 (0.9-1.1); PROTHROMBIN TIME 18.2 SEC (8.9-11.5)
[2023-06-28 09:58] LABS: A/G RATIO 0.83; ALANINE AMINOTRANSFERASE,ALT 13 U/L (16-63); ALKALINE PHOSPHATASE 105 U/L (46-116); ANION GAP 14.9 mmol/L (5-15); ASPARTATE AMNIOTRANSFERASE,AST 15 U/L (15-37); BILIRUBIN TOTAL 0.7 mg/dL (0.2-1.0); BLOOD UREA NITROGEN,BUN 16 mg/dL (7-18); C-REACTIVE PROTEIN 15.96 mg/dL (<=0.50); CALCIUM 9.2 mg/dL (8.5-10.1); CARBON DIOXIDE,CO2 29 mmol/L (21-32); CHLORIDE,CL 105 mmol/L (98-107); CREATININE 0.9 mg/dL (0.70-1.30); ESTIMATED GFR 82 mL/min (>=60); GLUCOSE RANDOM 133 mg/dL (70-99); POTASSIUM,K 3.9 mmol/L (3.5-5.1); PRO B-TYPE NATRIUR PEPT,BNPPRO 4997 pg/mL (<=450); PROTEIN TOTAL,TP 6.6 g/dL (6.4-8.2); SODIUM,NA 145 mmol/L (136-145)
[2023-06-28 10:07] LABS: CORONAVIRUS COVID-19 NAA NEGATIVE (NEGATIVE)
[2023-06-28 10:08] LABS: INFLUENZA A NAA NEGATIVE (NEGATIVE); INFLUENZA B NAA NEGATIVE (NEGATIVE); RESPIRATORY SYNCYTIAL VIR NAA NEGATIVE (NEGATIVE)
[2023-06-28] MEDS: Furosemide 40 MG/4 ML VIAL IV ONE (10:26)
[2023-06-28] MEDS: cefTRIAXone 1 GM Vial IVPUSH ONE (10:26)
[2023-06-28 11:24] LABS: BASE EXCESS ARTERIAL,POC 4 mmol/L ((-2)-3); HCO3 ARTERIAL,POC 28.5 mmol/L (21-28); O2 SATURATION ARTERIAL,POC 94.2 % (94-98); PCO2 ARTERIAL,POC 43 mmHg (35-48); PH ARTERIAL,POC 7.43 pH (7.35-7.45); PO2 ARTERIAL,POC 70 mmHg (83-108); TCO2 ARTERIAL,POC 27.8 mmol/L (22-29)
[2023-06-28] MEDS ORDERED: Acetaminophen 500 MG Tab PO PRN (12:02)
[2023-06-28] MEDS: methylPREDNISolone Sodium Succinate 125 MG/2 ML SDV IVPUSH SCH (12:12)
[2023-06-28] MEDS: Albuterol/Ipratropium 3.0-0.5 MG/3 ML Neb Soln NEB SCH (12:12)
[2023-06-28] MEDS: Azithromycin 250 MG Tab PO SCH (12:12)
[2023-06-28] MEDS: Furosemide 20 MG Tab PO SCH (12:39)
[2023-06-28] MEDS: Metoprolol Succinate 25 MG Tab.ER PO SCH (18:13)
[2023-06-28] MEDS: Potassium Chloride 10 MEQ Tab.ER PO SCH (18:13)
[2023-06-28] MEDS: Warfarin 2.5 MG Tab PO ONE (18:13)
[2023-06-28] MEDS: Finasteride 5 MG Tab PO SCH (20:28)
[2023-06-28] MEDS: Tamsulosin 0.4 MG Cap.ER PO SCH (20:28)
[2023-06-28] MEDS: Rosuvastatin 20 MG Tab PO SCH (20:28)
[2023-06-28] MEDS: Magnesium Oxide 400 MG Tab PO SCH (20:28)
[2023-06-29 06:40] LABS: BASOPHILS PERCENT AUTO 0.1 % (0.2-1.2); HEMOGLOBIN 12.1 g/dL (14.0-18.0); IMMATURE GRAN ABSOLUTE AUTO 0.02 x10^3/uL (0.00-0.07); LYMPHOCYTES ABSOLUTE AUTO 0.6 x10^3/uL (1.0-4.8); MEAN CORPUSCULAR HEMOGLOBIN 30.6 pg (26.0-32.0); MEAN CORPUSCULAR HGB CONC 31.8 g/dL (32.0-36.0); MEAN CORPUSCULAR VOLUME 96.2 fL (78.0-93.0); MONOCYTES ABSOLUTE AUTO 0.4 x10^3/uL (0.0-0.8); MONOCYTES PERCENT AUTO 4.9 % (2.0-11.0); NEUTROPHILS ABSOLUTE AUTO 7.4 x10^3/uL (1.8-7.7); PLATELET COUNT,PLT 220 x10^3/uL (130-400); RED BLOOD CELL COUNT 3.95 x10^6/uL (4.5-6.0); WHITE BLOOD CELL COUNT,WBC 8.4 x10^3/uL (4.0-10.0)
[2023-06-29 06:56] LABS: INR 2.6 (0.9-1.1); PROTHROMBIN TIME 24.8 SEC (8.9-11.5)
[2023-06-29 06:58] LABS: LYMPHOCYTES PERCENT AUTO 6.8 % (25.0-50.0)
[2023-06-29 07:11] LABS: CALCIUM 9.2 mg/dL (8.5-10.1); CREATININE 0.9 mg/dL (0.70-1.30); EST CRCL DRUG DOSING (CG) 53.69 mL/min; POTASSIUM,K 3.7 mmol/L (3.5-5.1)
[2023-06-29 07:12] LABS: ANION GAP 12.7 mmol/L (5-15)
[2023-06-29] MEDS: Omeprazole 20 MG Cap.CR PO SCH (08:38)
[2023-06-29] MEDS: Phytonadione 100 MCG Tab PO SCH (08:40)
[2023-06-29] MEDS: Potassium Chloride 10 MEQ Tab.ER PO SCH (08:40)
[2023-06-29] MEDS: Simethicone 80 MG Tab.Chew PO SCH (08:40)
[2023-06-29] MEDS: cefTRIAXone 1 GM Vial IVPUSH SCH (08:41)
[2023-06-29] MEDS: Sennosides 8.6 MG Tab PO SCH (08:41)
[2023-06-29] MEDS: Folic Acid 1 MG Tab PO SCH (08:41)
[2023-06-29] MEDS: Ferrous Sulfate 325 MG Tab PO SCH (08:41)
[2023-06-29] MEDS: methylPREDNISolone Sodium Succinate 40 MG/1 ML SDV IVPUSH SCH (10:58)
[2023-06-29] MEDS: Warfarin 2.5 MG Tab PO SCH (17:42)
[2023-06-30 06:50] LABS: HEMATOCRIT 35.5 % (40.0-52.0); HEMOGLOBIN 11.5 g/dL (14.0-18.0); MEAN CORPUSCULAR HEMOGLOBIN 31.3 pg (26.0-32.0); MEAN CORPUSCULAR HGB CONC 32.4 g/dL (32.0-36.0); MEAN CORPUSCULAR VOLUME 96.7 fL (78.0-93.0); RED BLOOD CELL COUNT 3.67 x10^6/uL (4.5-6.0); WHITE BLOOD CELL COUNT,WBC 10.8 x10^3/uL (4.0-10.0)
[2023-06-30 07:01] LABS: INR 2.2 (0.9-1.1); PROTHROMBIN TIME 21.3 SEC (8.9-11.5)
[2023-06-30 07:11] LABS: A/G RATIO 0.79; ALBUMIN 2.7 g/dL (3.4-5.0); BILIRUBIN TOTAL 0.2 mg/dL (0.2-1.0); CALCIUM 8.9 mg/dL (8.5-10.1); EST CRCL DRUG DOSING (CG) 48.32 mL/min; POTASSIUM,K 3.8 mmol/L (3.5-5.1); PROTEIN TOTAL,TP 6.1 g/dL (6.4-8.2)
[2023-06-30 07:13] LABS: ANION GAP 12.8 mmol/L (5-15)
[2023-06-30] MEDS: predniSONE 20 MG Tab PO SCH (09:30)
[2023-07-01 06:51] LABS: HEMATOCRIT 38.4 % (40.0-52.0); HEMOGLOBIN 12.2 g/dL (14.0-18.0); MEAN CORPUSCULAR HGB CONC 31.8 g/dL (32.0-36.0); MEAN CORPUSCULAR VOLUME 97.5 fL (78.0-93.0); RED BLOOD CELL COUNT 3.94 x10^6/uL (4.5-6.0); WHITE BLOOD CELL COUNT,WBC 10.7 x10^3/uL (4.0-10.0)
[2023-07-01 07:03] LABS: CALCIUM 8.9 mg/dL (8.5-10.1); CREATININE 1.1 mg/dL (0.70-1.30); EST CRCL DRUG DOSING (CG) 43.93 mL/min; POTASSIUM,K 4.3 mmol/L (3.5-5.1)
[2023-07-01 07:04] LABS: ANION GAP 13.3 mmol/L (5-15); INR 2.1 (0.9-1.1); PROTHROMBIN TIME 20.1 SEC (8.9-11.5)
[2023-07-01] MEDS ORDERED: Warfarin 2.5 MG Tab PO SCH (18:00)
== END 2023-07-01 10:19 | disposition home or self-care (01) | DRG 189 ==
LOC: VM.ED 08:49 → VM.MS 10:28
PROVIDERS: ADMIT Family Medicine; ATTEND Family Medicine
DX: J96.01 Acute respiratory failure with hypoxia (principal); I50.32 Chronic diastolic (congestive) heart failure; J44.0 Chronic obstructive pulmonary disease with (acute) lower respiratory infection; J44.1 Chronic obstructive pulmonary disease with (acute) exacerbation; Z66 Do not resuscitate; R41.0 Disorientation, unspecified; I11.0 Hypertensive heart disease with heart failure; I48.91 Unspecified atrial fibrillation; N40.0 Benign prostatic hyperplasia without lower urinary tract symptoms; E78.00 Pure hypercholesterolemia, unspecified; K59.09 Other constipation; M19.90 Unspecified osteoarthritis, unspecified site; D64.9 Anemia, unspecified; K21.9 Gastro-esophageal reflux disease without esophagitis; Z86.718 Personal history of other venous thrombosis and embolism; Z90.49 Acquired absence of other specified parts of digestive tract; Z79.01 Long term (current) use of anticoagulants; Z79.899 Other long term (current) drug therapy; Z87.891 Personal history of nicotine dependence
CPT/HCPCS: 0241U; 36415; 36600; 71046; 80048; 80053; 82803; 83605; 83735; 83880; 84145; 84484; 85025; 85027; 85379; 85610; 86140; 87040; 93005; 93010; 94640; 97110-GP; 97116-GP; 97161-GP; 97166-GO; 99284; 99285; A9270-GY; J0696; J1940; J2920; J2930; J7512; J7620-GY